=== PATIENT | female | born 1985 | race Caucasian/White ===

== ENCOUNTER 2024-01-15 18:41 | Inpatient (IN) ==
[2024-01-15] MEDS: SODIUM CHLORIDE 0.9% 1,000 ML IV SCH (19:57)
[2024-01-15] MEDS: hydrALAZINE HCL 20 MG/ML VIAL IV STA (19:57)
[2024-01-15 20:23] LABS: Basophils # (auto) 0.05 K/uL (0.00-0.20); Basophils % (auto) 0.5 %; Eosinophils # (auto) 0.18 K/uL (0.00-0.50); Eosinophils % (auto) 1.9 %; Hematocrit (blood only) 42.7 % (37.0-47.0); Hemoglobin 14.8 g/dl (12.0-16.0); Immature Granulocytes # (auto) 0.03 K/uL (0.01-0.20); Immature Granulocytes % (auto) 0.3 %; Lymphocytes # (auto) 2.25 K/uL (1.20-3.40); Lymphocytes % (auto) 24.2 %; Mean Corpuscular Hemoglobin 31.4 pg (25.0-34.0); Mean Corpuscular Hgb Conc 34.7 g/dL (32.0-36.0); Mean Corpuscular Volume 90.7 fL (80.0-100.0); Mean Platelet Volume 11.7 fL (9.4-12.4); Monocytes # (auto) 0.54 K/uL (0.11-0.59); Monocytes % (auto) 5.8 %; Neutrophils # (auto) 6.24 K/uL (1.40-6.50); Neutrophils % (auto) 67.3 %; Platelet Count 286 K/uL (130-400); RDW Coefficient of Variation 11.8 % (11.5-14.5); RDW Standard Deviation 39.1 fL (36.4-46.3); Red Blood Count 4.71 M/uL (4.20-5.40); White Blood Count 9.29 K/ul (4.8-10.8)
[2024-01-15 20:38] LABS: Albumin Globulin Ratio 1.6 (0.9-2); BUN Creatinine Ratio 16.4 (10-20); Bilirubin,Total 0.4 mg/dl (0.2-1.0); Calcium 10.4 mg/dl (8.6-10.3); Creatinine Clr Calc Pharmacy 91.7 ml/min; Globulin 3.2 gm/dl (2.5-4.0); Potassium 3.5 mmol/L (3.5-5.1); Total Protein 8.2 gm/dl (6.0-8.3)
[2024-01-15] MEDS: OPTIRAY 320 100ml IV ONE (21:26)
--- NOTE | 2024-01-15 22:33 | CT Scan Report ---
Exam(s): CT ABDOMEN + PELVIS With Contrast IV Amt: 93 ml [id number] EXAM: CT Abdomen and Pelvis With Intravenous Contrast CLINICAL HISTORY: Reason for exam: ? sigmoid volvulus on outpt CT yesterday. TECHNIQUE: Axial computed tomography images of the abdomen and pelvis with intravenous contrast. CTDI is 14.49 mGy and DLP is 736.09 mGy-cm. Automated exposure control was utilized for the study. A dose lowering technique was utilized adhering to the principles of ALARA. CONTRAST: Patient received 93 ml [id number] 320 of IV contrast COMPARISON: None. FINDINGS: Lung bases: No mass. No consolidation. No pleural effusion. An elevated right hemidiaphragm. ABDOMEN: Motion-induced image degradation. Liver: Unremarkable. No mass. Gallbladder and bile ducts: Unremarkable. No calcified stones. No ductal dilation. Pancreas: Unremarkable. No mass. No ductal dilation. Spleen: Unremarkable. No splenomegaly. Adrenals: Unremarkable. No mass. Kidneys and ureters: A 7 mm right renal cortical cyst. Smaller left renal cortical cyst. No solid mass. No hydronephrosis. Stomach and bowel: Gas filled mildly dilated gastric body and portion of the duodenum. Normal caliber small bowel. Moderately large amount of formed stool/gas mixed with luminal contrast is seen in the ascending colon and hepatic flexure. There is up to 6.7 cm gaseous distention of the transverse colon. There is in the left upper quadrant acute luminal obliteration, beaklike narrowing and some angulation of the splenic flexure/proximal descending colonic segment noted (series 300 image 51), concerning for adhesion. There is diffuse luminal narrowing of the descending colon and rectosigmoid and a 3.5 x 2.8 cm contrast/stool mixed rounded structure in the mid sigmoid (series 2 image 71, series 300 image 76). There is no twist/torsion of the sigmoid colon around its mesentery noted to suggest a sigmoid volvulus. PELVIS: Appendix: Appendix is not visualized. No acute findings in the region of the appendix. Bladder: Partially empty bladder is unremarkable. Reproductive: A mildly lobulated anteverted uterus is seen with a 2 cm heterogeneously hyperdense rounded structure, likely a fundal fibroid. ABDOMEN and PELVIS: Intraperitoneal space: No free air. No significant fluid collection. Bones/joints: No acute fracture. No dislocation. Mild/moderate degenerative L5-S1 disc/endplate spondylosis. Soft tissues: Unremarkable. Vasculature: Unremarkable. No abdominal aortic aneurysm. Lymph nodes: No enlarged lymph nodes.. IMPRESSION: No definite evidence of sigmoid volvulus noted. In the left upper abdominal quadrant there is acute luminal obliteration, beaklike narrowing and some angulation of the splenic flexure/proximal descending colon it segment is seen with up to 6.7 cm gaseous distention of the transverse colon, concerning for adhesion/large bowel obstruction. Recommend clinical correlation/follow-up. Diffuse segmental spasms/luminal narrowing of the descending colon and rectosigmoid. A 3.5 cm rounded/ball-like stool/contrast mixed structure is seen in the midst sigmoid. Probably a uterine 2 cm fundal fibroid. . Electronically signed by: Yvette Salazar MD, PRAVEENR 01/15/24 22:32 PM
[2024-01-15] MEDS: ONDANSETRON INJ 2 MG/ML 2 ML VIAL IV STA (23:22)
[2024-01-15] MEDS: MoRPHine SULFATE 4 MG/ML 1 ML CARP\\VIAL IV STA (23:23)
--- NOTE | 2024-01-15 23:28 | Emergency Department Note ---
Impression & Plan Large bowel obstruction ED Provider Note CHIEF COMPLAINT: Abdominal pain, diarrhea HISTORY OF PRESENT ILLNESS: This 38-year-old female patient with past medical history of hypertension, hypothyroid, presents to the emergency department with complaints of abdominal pain. The patient states she has been suffering with intermittent abdominal cramping and diarrhea for the last 6 months. She is followed by [facility] [address] gastroenterology, had a negative colonoscopy in July. She was on 2 rounds of antibiotics without improvement in the diarrhea and finally had a CAT scan yesterday. Patient was sent in to the emergency department emergently this evening after a phone call informing her of a sigmoid volvulus. The patient states she had significant amounts of pain yesterday but that has largely subsided. She complains of a crampy "cannot get comfortable" abdominal discomfort today. She denies any blood in the stools, She has had no vomiting. . REVIEW OF SYSTEMS: A review of systems was performed with positives and pertinent negatives listed in the history of present illness. 10 systems were reviewed and are otherwise negative. ALLERGIES: see below MEDICATIONS: see below PMH: see below SOCIAL HISTORY: see below DDx: Small bowel obstruction, volvulus, kidney stone, colitis, malignancy, among others. PHYSICAL EXAM: Vital signs reviewed. General: Well-appearing 38-year-old female, in no significant distress. HEENT: No scleral icterus, PERRLA, neck supple. Atraumatic. Cardiovascular: Regular rate and rhythm, no extra sounds. Pulmonary: Clear to auscultation bilaterally, normal work of breathing. Abdomen: Soft, mild diffuse tenderness, nondistended, minimal tympany to percussion, positive bowel sounds. Musculoskeletal: Atraumatic, no peripheral edema. Neurologic: Patient awake alert and oriented x 3, speech is clear Skin: Warm, dry, no rash EMERGENCY DEPARTMENT COURSE/MDM: this patient was evaluated And appeared to be in some discomfort, but no distress. Medical records from the outpatient setting were reviewed including CAT scan read as a sigmoid volvulus yesterday. Patient symptoms seem to have improved. KUB was performed and reveals no clear obstruction however there is dilated bowel. Laboratory work is reassuring, lactate and WBC are normal. Patient was hydrated with normal saline solution, given IV morphine and Zofran for some cramping abdominal pain. I did speak with Dr. Carballo of general surgery who agreed with repeating CT imaging given the change in clinical picture and the lack of access to yesterday's images. Repeat CT with IV contrast was performed. Images are read as an acute narrowing at the splenic flexure/descending colon with some of yesterday's oral contrast getting through. There is a concern for adhesion/large bowel obstruction. I did consult gastroenterology, Dr. Carbajal, who has recommended admission for possible endoscopy tomorrow. Dr. Carballo was informed of the findings of the CAT scan which he reviewed. He feels this is not a complete obstruction based on the CT today. He has recommended medical admission with GI and general surgery consultation. The patient was informed of the findings and plan and agrees. Dr. Hernandez of the hospitalist service was consulted for admission and further management. MONITORING: An order for cardiac monitoring was placed and the patient is noted to be in a normal sinus rhythm at 86 beats per minute. RADIOLOGY: KUB to my interpretation reveals dilated loops of bowel without clear obstructive pathology. No free air. CT imaging of the abdomen pelvis per radiology: IMPRESSION: No definite evidence of sigmoid volvulus noted. In the left upper abdominal quadrant there is acute luminal obliteration, beaklike narrowing and some angulation of the splenic flexure/proximal descending colon it segment is seen with up to 6.7 cm gaseous distention of the transverse colon, concerning for adhesion/large bowel obstruction. Recommend clinical correlation/follow-up. Diffuse segmental spasms/luminal narrowing of the descending colon and rectosigmoid. A 3.5 cm rounded/ball-like stool/contrast mixed structure is seen in the midst sigmoid. Probably a uterine 2 cm fundal fibroid. . DISPOSITION: admission Past Med/Surg History Problem List (Updated 01/15/24 @ 23:36 by Milana Marino MD) Large bowel obstruction (Acute) Medical History (Updated 01/15/24 @ 23:36 by Milana Marino MD) Heart abnormality Hypothyroid Surgical History (Updated 11/25/23 @ 08:44 by Emelia Tam RN) Status post breast reduction Social History Smoking Status: Never smoker Preferred Language: Bulgarian Feels Safe at Home: Yes Allergies Allergies Allergy/AdvReac Type Severity Reaction Status Date / Time No Known Allergies Allergy Verified 01/15/24 19:10 Home Meds Home Medications Medication Instructions Recorded Confirmed levothyroxine 50 mcg capsule 50 mcg PO DAILY 11/25/23 01/15/24 lisinopril 2.5 mg tablet 2.5 mg PO DAILY 11/25/23 01/15/24 norgestimate 0.25 mg-ethinyl 1 tab PO DAILY 11/25/23 01/15/24 estradiol 35 mcg tablet (Sprintec (28)) Results & Data (ED) Vital Signs Vital Signs - 24 hr 01/15/24 18:49 01/15/24 19:10 01/15/24 19:12 Temperature 36.8 C Temperature Source Temporal Artery Scan Pulse Rate 93 H 85 Pulse Rate [Apical] 74 Respiratory Rate 18 19 Blood Pressure 165/119 H Blood Pressure [Right Arm] 172/109 H Blood Pressure Mean 134 Blood Pressure Mean [Right Arm] 130 Pulse Oximetry 98 99 Oxygen Delivery Method Room Air Room Air Sepsis Recent Fever Within 48 Hours No Sepsis New/Unexplained Change in Mental Status No Sepsis Action Taken by Nursing No Action Required 01/15/24 22:00 01/15/24 23:28 Temperature Temperature Source Pulse Rate 98 H Pulse Rate [Apical] 86 Respiratory Rate 15 Blood Pressure Blood Pressure [Right Arm] 135/83 Blood Pressure Mean Blood Pressure Mean [Right Arm] 100 Pulse Oximetry 97 Oxygen Delivery Method Room Air Sepsis Recent Fever Within 48 Hours Sepsis New/Unexplained Change in Mental Status Sepsis Action Taken by [facility] Medications Current Medication List: was personally reviewed by me Laboratory Data Attestation: I reviewed the patient's lab results. 01/15/24 19:55 01/15/24 19:55 Lab Results 01/15/24 01/15/24 01/15/24 Range/Units 19:55 20:40 21:25 WBC 9.29 (4.8-10.8) K/ul RBC 4.71 (4.20-5.40) M/uL Hgb 14.8 (12.0-16.0) g/dl Hct 42.7 (37.0-47.0) % MCV 90.7 (80.0-100.0) fL MCH 31.4 (25.0-34.0) pg MCHC 34.7 (32.0-36.0) g/dL RDW Std Deviation 39.1 (36.4-46.3) fL RDW Coeff of Sean 11.8 (11.5-14.5) % Plt Count 286 (130-400) K/uL MPV 11.7 (9.4-12.4) fL Immature Gran % (Auto) 0.3 % Neut % (Auto) 67.3 % Lymph % (Auto) 24.2 % Fleming % (Auto) 5.8 % Eos % (Auto) 1.9 % Baso % (Auto) 0.5 % Neut # (Auto) 6.24 (1.40-6.50) K/uL Lymph # (Auto) 2.25 (1.20-3.40) K/uL Fleming # (Auto) 0.54 (0.11-0.59) K/uL Eos # (Auto) 0.18 (0.00-0.50) K/uL Baso # (Auto) 0.05 (0.00-0.20) K/uL Immature Gran # (Auto) 0.03 (0.01-0.20) K/uL Sodium 136 (136-145) mmol/L Potassium 3.5 (3.5-5.1) mmol/L Chloride 101 (98-107) mmol/L Carbon Dioxide 27 (21-32) mmol/L Anion Gap 8 (3-11) BUN 12 (6-23) mg/dl Creatinine 0.73 (0.6-1.2) mg/dl Est Cr Clr Drug Dosing 91.7 ml/min eGFR 107.89 BUN/Creatinine Ratio 16.4 (10-20) Glucose 82 (70-99(Fasting)) mg/dl Lactate 0.8 (0.4-2.0) mmol/L Calcium 10.4 H (8.6-10.3) mg/dl Total Bilirubin 0.4 (0.2-1.0) mg/dl AST 14 (13-39) U/L ALT 9 (7-52) U/L Alkaline Phosphatase 63 (34-104) U/L Total Protein 8.2 (6.0-8.3) gm/dl Albumin 5.0 (3.4-5.0) gm/dl Globulin 3.2 (2.5-4.0) gm/dl Albumin/Globulin Ratio 1.6 (0.9-2) POC Ur Test NEG (NEG) Administered Medications Sodium Chloride (Nss) 1,000 mls @ 125 mls/hr IV .Q8H ZACH Stop: 02/14/24 19:44 Last Admin: 01/15/24 19:57 Dose: 125 mls/hr Documented By: AVI Discontinued Medications Hydralazine HCl (Hydralazine Hcl 20 Mg/Ml Vial) 10 mg IV NOW STA Stop: 01/15/24 19:27 Last Admin: 01/15/24 19:57 Dose: 10 mg Documented By: AVI Ioversol (Optiray 320 100ml) 93 ml IV ONCE ONE Stop: 01/15/24 21:27 Last Admin: 01/15/24 21:26 Dose: 93 ml Documented By: ANDRÉS Morphine Sulfate (Morphine Sulfate 4 Mg/Ml 1 Ml Carp\\Vial) 4 mg IV NOW STA Stop: 01/15/24 23:11 Last Admin: 01/15/24 23:23 Dose: 4 mg Documented By: YESSY Ondansetron HCl (Ondansetron Inj 2 Mg/Ml 2 Ml Vial) 4 mg IV NOW STA Stop: 01/15/24 23:11 Last Admin: 01/15/24 23:22 Dose: 4 mg Documented By: YESSY Imaging Data Radiologist's Impression: Abdomen/Pelvis CT 01/15/24 20:43 Exam(s): CT ABDOMEN + PELVIS With Contrast IV Amt: 93 ml [id number] EXAM: CT Abdomen and Pelvis With Intravenous Contrast CLINICAL HISTORY: Reason for exam: ? sigmoid volvulus on outpt CT yesterday. TECHNIQUE: Axial computed tomography images of the abdomen and pelvis with intravenous contrast. CTDI is 14.49 mGy and DLP is 736.09 mGy-cm. Automated exposure control was utilized for the study. A dose lowering technique was utilized adhering to the principles of ALARA. CONTRAST: Patient received 93 ml [id number] 320 of IV contrast COMPARISON: None. FINDINGS: Lung bases: No mass. No consolidation. No pleural effusion. An elevated right hemidiaphragm. ABDOMEN: Motion-induced image degradation. Liver: Unremarkable. No mass. Gallbladder and bile ducts: Unremarkable. No calcified stones. No ductal dilation. Pancreas: Unremarkable. No mass. No ductal dilation. Spleen: Unremarkable. No splenomegaly. Adrenals: Unremarkable. No mass. Kidneys and ureters: A 7 mm right renal cortical cyst. Smaller left renal cortical cyst. No solid mass. No hydronephrosis. Stomach and bowel: Gas filled mildly dilated gastric body and portion of the duodenum. Normal caliber small bowel. Moderately large amount of formed stool/gas mixed with luminal contrast is seen in the ascending colon and hepatic flexure. There is up to 6.7 cm gaseous distention of the transverse colon. There is in the left upper quadrant acute luminal obliteration, beaklike narrowing and some angulation of the splenic flexure/proximal descending colonic segment noted (series 300 image 51), concerning for adhesion. There is diffuse luminal narrowing of the descending colon and rectosigmoid and a 3.5 x 2.8 cm contrast/stool mixed rounded structure in the mid sigmoid (series 2 image 71, series 300 image 76). There is no twist/torsion of the sigmoid colon around its mesentery noted to suggest a sigmoid volvulus. PELVIS: Appendix: Appendix is not visualized. No acute findings in the region of the appendix. Bladder: Partially empty bladder is unremarkable. Reproductive: A mildly lobulated anteverted uterus is seen with a 2 cm heterogeneously hyperdense rounded structure, likely a fundal fibroid. ABDOMEN and PELVIS: Intraperitoneal space: No free air. No significant fluid collection. Bones/joints: No acute fracture. No dislocation. Mild/moderate degenerative L5-S1 disc/endplate spondylosis. Soft tissues: Unremarkable. Vasculature: Unremarkable. No abdominal aortic aneurysm. Lymph nodes: No enlarged lymph nodes.. IMPRESSION: No definite evidence of sigmoid volvulus noted. In the left upper abdominal quadrant there is acute luminal obliteration, beaklike narrowing and some angulation of the splenic flexure/proximal descending colon it segment is seen with up to 6.7 cm gaseous distention of the transverse colon, concerning for adhesion/large bowel obstruction. Recommend clinical correlation/follow-up. Diffuse segmental spasms/luminal narrowing of the descending colon and rectosigmoid. A 3.5 cm rounded/ball-like stool/contrast mixed structure is seen in the midst sigmoid. Probably a uterine 2 cm fundal fibroid. . Electronically signed by: Yvette Salazar MD, PRAVEENR 01/15/24 22:32 PM Discharge Plan Visit Data Chief Complaint: Referred by Doctor Stated Complaint: TWISTED COLON ED Provider: Milana Marino Discharge Problem: Large bowel obstruction Patient Disposition: Admitted As Inpatient Condition: Good Forms Stand Alone Forms: [facility], Important Visit Information Prescriptions Prescriptions: No Action norgestimate-ethinyl estradiol [Sprintec (28)] 0.25-35 mg-mcg Tablet 1 tab PO DAILY lisinopril 2.5 mg Tablet 2.5 mg PO DAILY levothyroxine 50 mcg Capsule 50 mcg PO DAILY Referrals Referrals: Davidson Weinstein MD [Primary Care Provider] -
--- NOTE | 2024-01-15 23:46 | History & Physical Report ---
Date of Service January 15, 2024 Assessment & Plan (1) Large bowel obstruction: Plan: hypertension, slightly elevated hypothyroidism, euthyroid as of TSH last year GMF Bowel rest, IVF GI consult re: large bowel obstruction (ED provider already in touch with Dr. Carbajal.) N.p.o. in anticipation of procedure. DVT prophylaxis. SCDs Full code Text document was generated using Front Row voice recognition software. It may contain grammatical or spelling errors. Kindly contact undersigned for clarification of any documentation item in question. History of Present Illness Chief Complaint: Abnormal CAT scan Primary Care Provider: Davidson Weinstein MD History obtained from patient and records. Medical history significant for hypertension, hypothyroidism, gestational DM. Patient has been dealing with constant abdominal pain with diarrhea symptoms since May 2023. Hemorrhoids on outpatient colonoscopy. Outpatient stool workup negative. No improvement with presumptive treatment for bacterial overgrowth as per patient. Out[place] CT [place] [facility] Patient noted worsening achy abdominal discomfort without vomiting symptoms yesterday. CT abdomen pelvis showed sigmoid volvulus. Patient directed to ER for evaluation. 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 Allergies Allergy/AdvReac Type Severity Reaction Status Date / Time No Known Allergies Allergy Verified 01/15/24 19:10 Home Medications Medication Instructions Recorded Confirmed Type levothyroxine 50 mcg capsule 50 mcg PO DAILY 11/25/23 01/15/24 History lisinopril 2.5 mg tablet 2.5 mg PO DAILY 11/25/23 01/15/24 History norgestimate 0.25 mg-ethinyl 1 tab PO DAILY 11/25/23 01/15/24 History estradiol 35 mcg tablet (Sprintec (28)) Past Med/Surg History Problem List (Updated 01/15/24 @ 23:36 by Milana Marino MD) Large bowel obstruction (Acute) Medical History (Updated 01/15/24 @ 23:36 by Milana Marino MD) Heart abnormality Hypothyroid Surgical History (Updated 11/25/23 @ 08:44 by Emelia Tam RN) Status post breast reduction Social History Smoking Status: Never smoker Second Hand Exposure: No; Do You Dip or Chew Tobacco: No; Tobacco Cessation Education Requested by Patient: No Hx Alcohol Use: Yes Hx Substance Use: Yes Last Used Substance: Just Prior to Arrival Last Used Substance Other:: Medical marijuana gummy used before admission Preferred Language: Faroese Communication Ability: Effective Antisubmarine Weapons Officer Required: No Current Living Situation: Parent and Family Current Living Situation Comment: Lives with parents Other Information That Helps Us Care for You: No Feels Safe at Home: Yes Safety Concerns: Feels Safe At This Time Review of Systems Review of Systems: As per HPI, all other systems reviewed and negative Physical Exam Physical Exam: GENERAL: Comfortable, pleasant, no respiratory distress SKIN: Normal color, warm HEENT: [facility] palpebral conjunctivae, no ptosis, dry buccal mucosa NECK : Supple, no tenderness CHEST : CTA, no tenderness HEART : RRR, no obvious murmurs ABDOMEN: distention, left-sided abdominal tenderness EXTREMITIES : No LE swelling/tenderness, no other conspicuous deformities noted NEUROLOGIC : Coherent, no facial asymmetry, no other gross focality Results & Data Results & Data Vital Signs (Past 12 Hours) Vital Signs Temp Pulse Pulse Resp BP BP Pulse Ox 01/15/24 23:28 98 H 01/15/24 22:00 86 15 135/83 97 01/15/24 19:12 74 19 172/109 H 99 01/15/24 19:10 85 01/15/24 18:49 36.8 C 93 H 18 165/119 H 98 O2 Del Method 01/15/24 23:28 01/15/24 22:00 Room Air 01/15/24 19:12 Room Air 01/15/24 19:10 01/15/24 18:49 Room Air Laboratory Results Laboratory Results WBC 9.29 K/ul (4.8-10.8) 01/15/24 19:55 RBC 4.71 M/uL (4.20-5.40) 01/15/24 19:55 Hgb 14.8 g/dl (12.0-16.0) 01/15/24 19:55 Hct 42.7 % (37.0-47.0) 01/15/24 19:55 MCV 90.7 fL (80.0-100.0) 01/15/24 19:55 MCH 31.4 pg (25.0-34.0) 01/15/24 19:55 MCHC 34.7 g/dL (32.0-36.0) 01/15/24 19:55 RDW Std Deviation 39.1 fL (36.4-46.3) 01/15/24 19:55 RDW Coeff of Sean 11.8 % (11.5-14.5) 01/15/24 19:55 Plt Count 286 K/uL (130-400) 01/15/24 19:55 MPV 11.7 fL (9.4-12.4) 01/15/24 19:55 Immature Gran % (Auto) 0.3 % 01/15/24 19:55 Neut % (Auto) 67.3 % 01/15/24 19:55 Lymph % (Auto) 24.2 % 01/15/24 19:55 Mills % (Auto) 5.8 % 01/15/24 19:55 Eos % (Auto) 1.9 % 01/15/24 19:55 Baso % (Auto) 0.5 % 01/15/24 19:55 Neut # (Auto) 6.24 K/uL (1.40-6.50) 01/15/24 19:55 Lymph # (Auto) 2.25 K/uL (1.20-3.40) 01/15/24 19:55 Mills # (Auto) 0.54 K/uL (0.11-0.59) 01/15/24 19:55 Eos # (Auto) 0.18 K/uL (0.00-0.50) 01/15/24 19:55 Baso # (Auto) 0.05 K/uL (0.00-0.20) 01/15/24 19:55 Immature Gran # (Auto) 0.03 K/uL (0.01-0.20) 01/15/24 19:55 Sodium 136 mmol/L (136-145) 01/15/24 19:55 Potassium 3.5 mmol/L (3.5-5.1) 01/15/24 19:55 Chloride 101 mmol/L (98-107) 01/15/24 19:55 Carbon Dioxide 27 mmol/L (21-32) 01/15/24 19:55 Anion Gap 8 (3-11) 01/15/24 19:55 BUN 12 mg/dl (6-23) 01/15/24 19:55 Creatinine 0.73 mg/dl (0.6-1.2) 01/15/24 19:55 Est Cr Clr Drug Dosing 91.7 ml/min 01/15/24 19:55 eGFR 107.89 01/15/24 19:55 BUN/Creatinine Ratio 16.4 (10-20) 01/15/24 19:55 Glucose 82 mg/dl (70-99(Fasting)) 01/15/24 19:55 Lactate 0.8 mmol/L (0.4-2.0) 01/15/24 20:40 Calcium 10.4 mg/dl (8.6-10.3) H 01/15/24 19:55 Total Bilirubin 0.4 mg/dl (0.2-1.0) 01/15/24 19:55 AST 14 U/L (13-39) 01/15/24 19:55 ALT 9 U/L (7-52) 01/15/24 19:55 Alkaline Phosphatase 63 U/L (34-104) 01/15/24 19:55 Total Protein 8.2 gm/dl (6.0-8.3) 01/15/24 19:55 Albumin 5.0 gm/dl (3.4-5.0) 01/15/24 19:55 Globulin 3.2 gm/dl (2.5-4.0) 01/15/24 19:55 Albumin/Globulin Ratio 1.6 (0.9-2) 01/15/24 19:55 POC Ur Test NEG (NEG) 01/15/24 21:25 Impressions Abdomen/Pelvis CT 01/15/24 20:43 Exam(s): CT ABDOMEN + PELVIS With Contrast IV Amt: 93 ml [id number] 320 EXAM: CT Abdomen and Pelvis With Intravenous Contrast CLINICAL HISTORY: Reason for exam: ? sigmoid volvulus on outpt CT yesterday. TECHNIQUE: Axial computed tomography images of the abdomen and pelvis with intravenous contrast. CTDI is 14.49 mGy and DLP is 736.09 mGy-cm. Automated exposure control was utilized for the study. A dose lowering technique was utilized adhering to the principles of ALARA. CONTRAST: Patient received 93 ml [id number] 320 of IV contrast COMPARISON: None. FINDINGS: Lung bases: No mass. No consolidation. No pleural effusion. An elevated right hemidiaphragm. ABDOMEN: Motion-induced image degradation. Liver: Unremarkable. No mass. Gallbladder and bile ducts: Unremarkable. No calcified stones. No ductal dilation. Pancreas: Unremarkable. No mass. No ductal dilation. Spleen: Unremarkable. No splenomegaly. Adrenals: Unremarkable. No mass. Kidneys and ureters: A 7 mm right renal cortical cyst. Smaller left renal cortical cyst. No solid mass. No hydronephrosis. Stomach and bowel: Gas filled mildly dilated gastric body and portion of the duodenum. Normal caliber small bowel. Moderately large amount of formed stool/gas mixed with luminal contrast is seen in the ascending colon and hepatic flexure. There is up to 6.7 cm gaseous distention of the transverse colon. There is in the left upper quadrant acute luminal obliteration, beaklike narrowing and some angulation of the splenic flexure/proximal descending colonic segment noted (series 300 image 51), concerning for adhesion. There is diffuse luminal narrowing of the descending colon and rectosigmoid and a 3.5 x 2.8 cm contrast/stool mixed rounded structure in the mid sigmoid (series 2 image 71, series 300 image 76). There is no twist/torsion of the sigmoid colon around its mesentery noted to suggest a sigmoid volvulus. PELVIS: Appendix: Appendix is not visualized. No acute findings in the region of the appendix. Bladder: Partially empty bladder is unremarkable. Reproductive: A mildly lobulated anteverted uterus is seen with a 2 cm heterogeneously hyperdense rounded structure, likely a fundal fibroid. ABDOMEN and PELVIS: Intraperitoneal space: No free air. No significant fluid collection. Bones/joints: No acute fracture. No dislocation. Mild/moderate degenerative L5-S1 disc/endplate spondylosis. Soft tissues: Unremarkable. Vasculature: Unremarkable. No abdominal aortic aneurysm. Lymph nodes: No enlarged lymph nodes.. IMPRESSION: No definite evidence of sigmoid volvulus noted. In the left upper abdominal quadrant there is acute luminal obliteration, beaklike narrowing and some angulation of the splenic flexure/proximal descending colon it segment is seen with up to 6.7 cm gaseous distention of the transverse colon, concerning for adhesion/large bowel obstruction. Recommend clinical correlation/follow-up. Diffuse segmental spasms/luminal narrowing of the descending colon and rectosigmoid. A 3.5 cm rounded/ball-like stool/contrast mixed structure is seen in the midst sigmoid. Probably a uterine 2 cm fundal fibroid. . Electronically signed by: Yvette Salazar MD, DABR 01/15/24 22:32 PM
[2024-01-16 00:14] LABS: Magnesium 2.1 mg/dl (1.7-2.4)
[2024-01-16] MEDS ORDERED: ACETAMINOPHEN 325 MG TAB PO PRN (00:39)
[2024-01-16] MEDS ORDERED: LORazepam 0.5 MG TAB PO PRN (00:40)
[2024-01-16] MEDS ORDERED: PROMETHAZINE 6.25 MG/50.25 ML BAG IV PRN (00:40)
[2024-01-16] MEDS: D5W AND NSS 1,000 ML IV SCH (01:48)
[2024-01-16] MEDS: KETOROLAC TROMETHAMINE 15 MG/ML VIAL IV PRN (01:57)
[2024-01-16 02:26] LABS: Appearance Urine Clear (Clear); Bilirubin Urine Negative (Negative); Blood Urine Negative (Negative); Color Urine Yellow; Glucose Urine UA Negative (Negative); Ketones Urine Negative (Negative); Leukocyte Esterase Urine Negative (Negative); Nitrite Urine Negative (Negative); Protein Urine Negative (Negative); Specific Gravity Urine > 1.045 (1.000-1.030); Urobilinogen Urine Negative (Negative)
[2024-01-16 05:53] LABS: Basophils # (auto) 0.04 K/uL (0.00-0.20); Basophils % (auto) 0.5 %; Eosinophils # (auto) 0.24 K/uL (0.00-0.50); Eosinophils % (auto) 2.8 %; Hematocrit (blood only) 37.1 % (37.0-47.0); Hemoglobin 12.2 g/dl (12.0-16.0); Immature Granulocytes # (auto) 0.03 K/uL (0.01-0.20); Immature Granulocytes % (auto) 0.4 %; Lymphocytes # (auto) 2.14 K/uL (1.20-3.40); Lymphocytes % (auto) 25.3 %; Mean Corpuscular Hemoglobin 30.7 pg (25.0-34.0); Mean Corpuscular Hgb Conc 32.9 g/dL (32.0-36.0); Mean Corpuscular Volume 93.2 fL (80.0-100.0); Mean Platelet Volume 11.7 fL (9.4-12.4); Monocytes # (auto) 0.73 K/uL (0.11-0.59); Monocytes % (auto) 8.6 %; Neutrophils # (auto) 5.28 K/uL (1.40-6.50); Neutrophils % (auto) 62.4 %; Platelet Count 239 K/uL (130-400); RDW Coefficient of Variation 11.9 % (11.5-14.5); RDW Standard Deviation 40.5 fL (36.4-46.3); Red Blood Count 3.98 M/uL (4.20-5.40); White Blood Count 8.46 K/ul (4.8-10.8)
[2024-01-16 06:08] LABS: BUN Creatinine Ratio 14.1 (10-20); Calcium 8.7 mg/dl (8.6-10.3); Creatinine Clr Calc Pharmacy 94.4 ml/min; Potassium 3.8 mmol/L (3.5-5.1)
[2024-01-16] MEDS: LEVOTHYROXINE SODIUM 50 MCG TABLET PO SCH (06:31)
[2024-01-16] MEDS: traMADol HCL 50 MG TABLET PO PRN (06:34)
[2024-01-16] MEDS ORDERED: tiZANidine HCL 4 MG TABLET PO PRN (06:45)
[2024-01-16] MEDS ORDERED: MoRPHine SULFATE 4 MG/ML 1 ML CARP\\VIAL IV PRN (07:25)
--- NOTE | 2024-01-16 07:46 | XRay Report ---
KUB CLINICAL HISTORY: Generalized abdominal pain. FINDINGS: 2 AP, portable, supine abdominal radiographs are correlated with lumbar spine radiographs d ated 04/26/2017. There is a nonobstructed abdominal bowel gas pattern. Moderate fecal retention is see n throughout the colon. There is residual enteric contrast in the right colon. No evidence of intrape ritoneal free air is seen on these supine images. There are no abnormal abdominal calcifications. The bony structures appearance intact. IMPRESSION: Moderate constipation. Electronically signed by: Von Adair M.D. 01/16/2024 7:44 AM
--- NOTE | 2024-01-16 08:01 | XRay Report ---
KUB CLINICAL HISTORY: Generalized abdominal pain. FINDINGS: 2 AP, portable, supine abdominal radiographs are compared to abdominal radiographs and CT d ated 01/15/2024. There is a nonobstructed abdominal bowel gas pattern. Moderate fecal retention is see n throughout the colon. There is residual enteric contrast in the colon. No evidence of intraperitone al free air is seen on these supine images. Excreted IV contrast fills the bladder. There are no abno rmal abdominal calcifications. The bony structures appearance intact. IMPRESSION: Moderate constipation. Electronically signed by: Von Adair M.D. 01/16/2024 8:00 AM
--- NOTE | 2024-01-16 08:26 | Surgery Consultation ---
Date of Consultation January 16, 2024 Assessment & Plan (1) Large bowel obstruction: Patient with c/o of diarrhea since May that was instructed to present to the emergency department after getting an o/p CT scan that was concerning for large bowel obstruction/sigmoid volvulus . Patient states she has been suffering with intermittent right sided abdominal cramping and diarrhea for the last 6 months without nausea or vomiting. She follows with [facility] gastroenterology, had a negative colonoscopy in July, was on 2 rounds of antibiotics without improvement in the diarrhea. On exam pt is in NAD, VSS, no wbc elevation, abd non distended, TTP right upper quadrant . Last BM yesterday CT from ER reading no evidence of sigmoid volvulus but possible large bowel obstruction: "In the left upper abdominal quadrant there is acute luminal obliteration, beaklike narrowing and some angulation of the splenic flexure/proximal descending colon it segment is seen with up to 6.7 cm gaseous distention of the transverse colon, concerning for adhesion/large bowel obstruction. Diffuse segmental spasms/luminal narrowing of the descending colon and rectosigmoid. A 3.5 cm rounded/ball-like stool/contrast mixed structure is seen in the midst sigmoid." KUB from this AM reading moderate constipation GI consult placed, poss colonoscopy this admission? Recommend keeping NPO IV fluids for hydration PRN IV analgesics Patient discussed with on-call surgeon Dr Carballo, no acute surgical intervention. Supervising Physician Co-Signing Physician Notes Patient seen and examined, labs and imaging reviewed, agree with above. 38-year-old otherwise healthy female with several month history of abdominal discomfort and loose bowel movements. She had an unremarkable colonoscopy in July. Workup to date has been negative. She had a CT scan with oral and IV contrast as an outpatient on Saturday, and was told on Saturday that she had a sigmoid volvulus and needed to report to the emergency room emergently. We do not have access to those images at this time. Repeat CT scan yesterday showed no volvulus but did show narrowing in the transverse colon concerning for adhesion or large bowel obstruction. On my read there was contrast extending beyond this area. The read also noted several areas of the lumen narrowing or spasming in the descending and sigmoid colon. She states her last bowel was ye morning. She is passing flatus. Her abdominal pain with the oral contrast was a bit worse, but she is in no distress or significant pain at this time. Her abdomen is soft, nontender, nondistended. Imaging personally viewed and interpreted and agree with the assessment of several areas where the bowel appears collapsed along the transverse and descending/sigmoid colon. There is contrast beyond this point. Is difficult to tell whether this truly represents external compression from an adhesion or luminal narrowing of some other etiology. I feel that a large bowel obstruction or volvulus is unlikely given her age, presenting symptoms, and a normal colonoscopy in July. She is scheduled for repeat colonoscopy with GI today. Will await those results. Surgery will continue to follow. History of Present Illness Reason for Consultation: diarrhea , poss. Large bowel obstruction Requesting Physician: Dr. Alfaro Attending Physician: Lawrence Alfaro, DO History of Present Illness Patient is a pleasant 38 yo female with PMH of hypertension, hypothyroid, LVNC (Left ventricular non compaction), diarrhea since May that was instructed to present to the emergency department after getting an o/p CT scan that was concerning for large bowel obstruction/sigmoid volvulus . Patient states she has been suffering with intermittent right sided abdominal cramping and diarrhea for the last 6 months without nausea or vomiting. She follows with [facility] gastroenterology, had a negative colonoscopy in July, was on 2 rounds of antibiotics without improvement in the diarrhea. had an O/p CAT scan yesterday. She denies any blood in her stool, had worsening abd pain that started Saturday as a sharp stabbing sensation and had developed into a dull achiness Saturday. Currently she reports she has diarrhea once daily in the AM but can have it as often as a few times a day pending on the day. Does not associate diarrhea with food. Reports a negative workup from [facility] GI for Celiac, ulcerative colitis and Crohn disease, and irritable bowel syndrome. Reports + family hx of colitis. Allergies Allergy/AdvReac Type Severity Reaction Status Date / Time No Known Allergies Allergy Verified 01/15/24 19:10 Home Medications Medication Instructions Recorded Confirmed Type levothyroxine 50 mcg capsule 50 mcg PO DAILY 11/25/23 01/15/24 History lisinopril 2.5 mg tablet 2.5 mg PO DAILY 11/25/23 01/15/24 History norgestimate 0.25 mg-ethinyl 1 tab PO DAILY 11/25/23 01/15/24 History estradiol 35 mcg tablet (Sprintec (28)) Patient History Medical History Heart abnormality Hypothyroid Surgical History Status post breast reduction Social History Smoking Status: Never smoker Second Hand Exposure: No; Do You Dip or Chew Tobacco: No; Tobacco Cessation Education Requested by Patient: No Hx Alcohol Use: Yes Hx Substance Use: Yes Last Used Substance: Just Prior to Arrival Last Used Substance Other:: Medical marijuana gummy used before admission Preferred Language: Slovenian Communication Ability: Effective Line Haul Driver Required: No Current Living Situation: Parent and Family Current Living Situation Comment: Lives with parents Other Information That Helps Us Care for You: No Feels Safe at Home: Yes Safety Concerns: Feels Safe At This Time Assistive Devices: None Review of Systems Constitutional: no fever and no chills Respiratory: no dyspnea Cardiovascular: no chest pain Gastrointestinal: + abdominal pain and + diarrhea/loose st ools; no nausea and no vomiting Musculoskeletal: no muscle weakness Physical Exam Constitutional: cooperative and comfortable; no acute distress Respiratory: normal respiratory effort and able to speak in complete sentences; no respiratory distress Cardiovascular: Rate/Rhythm: regular rate Gastrointestinal (Abdomen): Inspection/Auscultation: abdomen not distended Percussion/Palpation: + abdomen tender and abdomen soft Musculoskeletal: no cyanosis or clubbing, extremities motor strength 5/5 Results & Data Vital Signs (Past 12 Hours) Vital Signs Temp Pulse Pulse Pulse Resp BP BP 01/16/24 03:18 01/16/24 03:18 98.4 F 86 16 157/95 H 01/16/24 02:28 98.4 F 86 16 157/95 H 01/16/24 01:18 98.6 F 83 20 126/82 01/16/24 00:00 98.6 F 88 20 160/80 H 01/15/24 23:28 98 H 01/15/24 22:00 86 15 135/83 Pulse Ox O2 Del Method 01/16/24 03:18 Room Air 01/16/24 03:18 99 Room Air 01/16/24 02:28 99 Room Air 01/16/24 01:18 96 Room Air 01/16/24 00:00 97 Room Air 01/15/24 23:28 01/15/24 22:00 97 Room Air Diagnostic Findings [place], [place] [phone] XRay Report Patient: MARLYN LUNA Admit Date: 01/15/24 MR#: [id number] Address1: [address] Acct ID:[id number] Address2: Date: 1985 [facility] Zip: [place] [address] Age: 38 Location: 3W Sex: F Room/Bed: [facility] Att Phy: Lawrence Alfaro DO Diagnosis: BOWEL OBS Radha Phy: Davidson Weinstein MD Service Date: 01/16/24 Fam Phy: Interpreting Phy: Von Adair MDAdmit Phy: Sohan Edwards MD Ordering Phy: Lawrence Alfaro DO cc: ~ KUB CLINICAL HISTORY: Generalized abdominal pain. FINDINGS: 2 AP, portable, supine abdominal radiographs are compared to abdominal radiographs and CT dated 01/15/2024. There is a nonobstructed abdominal bowel gas pattern. Moderate fecal retention is seen throughout the colon. There is residual enteric contrast in the colon. No evidence of intraperitoneal free air is seen on these supine images. Excreted IV contrast fills the bladder. There are no abnormal abdominal calcifications. The bony structures appearance intact. IMPRESSION: Moderate constipation. Electronically signed by: Von Adair M.D. 01/16/2024 8:00 AM Dictated: 01/16/24 0759 Transcribed: 01/16/24 0759 [facility] [place] [phone] CT Scan Report Patient: MARLYN LUNA Admit Date: 01/15/24 MR#: [id number] Address1: [facility] [place] Acct ID:[id number] Address2: Date: 1985 [facility] Zip: [place] [address] Age: 38 Location: ED Sex: F Room/Bed: Att Phy: Diagnosis: TWISTED COLON Radha Phy: Davidson Weinstein MD Service Date: 01/15/24 [facility] Phy: Interpreting Phy: Katie Yvette Salazar MDAdmit Phy: Ordering Phy: Milana Marino M.D. cc: ~ Exam(s): CT ABDOMEN + PELVIS With Contrast IV Amt: 93 ml [id number] 320 EXAM: CT Abdomen and Pelvis With Intravenous Contrast CLINICAL HISTORY: Reason for exam: ? sigmoid volvulus on outpt CT yesterday. TECHNIQUE: Axial computed tomography images of the abdomen and pelvis with intravenous contrast. CTDI is 14.49 mGy and DLP is 736.09 mGy-cm. Automated exposure control was utilized for the study. A dose lowering technique was utilized adhering to the principles of ALARA. CONTRAST: Patient received 93 ml [id number] 320 of IV contrast COMPARISON: None. FINDINGS: Lung bases: No mass. No consolidation. No pleural effusion. An elevated right hemidiaphragm. ABDOMEN: Motion-induced image degradation. Liver: Unremarkable. No mass. Gallbladder and bile ducts: Unremarkable. No calcified stones. No ductal dilation. Pancreas: Unremarkable. No mass. No ductal dilation. Spleen: Unremarkable. No splenomegaly. Adrenals: Unremarkable. No mass. Kidneys and ureters: A 7 mm right renal cortical cyst. Smaller left renal cortical cyst. No solid mass. No hydronephrosis. Stomach and bowel: Gas filled mildly dilated gastric body and portion of the duodenum. Normal caliber small bowel. Moderately large amount of formed stool/gas mixed with luminal contrast is seen in the ascending colon and hepatic flexure. There is up to 6.7 cm gaseous distention of the transverse colon. There is in the left upper quadrant acute luminal obliteration, beaklike narrowing and some angulation of the splenic flexure/proximal descending colonic segment noted (series 300 image 51), concerning for adhesion. There is diffuse luminal narrowing of the descending colon and rectosigmoid and a 3.5 x 2.8 cm contrast/stool mixed rounded structure in the mid sigmoid (series 2 image 71, series 300 image 76). There is no twist/torsion of the sigmoid colon around its mesentery noted to suggest a sigmoid volvulus. PELVIS: Appendix: Appendix is not visualized. No acute findings in the region of the appendix. Bladder: Partially empty bladder is unremarkable. Reproductive: A mildly lobulated anteverted uterus is seen with a 2 cm heterogeneously hyperdense rounded structure, likely a fundal fibroid. ABDOMEN and PELVIS: Intraperitoneal space: No free air. No significant fluid collection. Bones/joints: No acute fracture. No dislocation. Mild/moderate degenerative L5-S1 disc/endplate spondylosis. Soft tissues: Unremarkable. Vasculature: Unremarkable. No abdominal aortic aneurysm. Lymph nodes: No enlarged lymph nodes.. IMPRESSION: No definite evidence of sigmoid volvulus noted. In the left upper abdominal quadrant there is acute luminal obliteration, beaklike narrowing and some angulation of the splenic flexure/proximal descending colon it segment is seen with up to 6.7 cm gaseous distention of the transverse colon, concerning for adhesion/large bowel obstruction. Recommend clinical correlation/follow-up. Diffuse segmental spasms/luminal narrowing of the descending colon and rectosigmoid. A 3.5 cm rounded/ball-like stool/contrast mixed structure is seen in the midst sigmoid. Probably a uterine 2 cm fundal fibroid. . Electronically signed by: Yvette Salazar MD, PRAVEENR 01/15/24 22:32 PM Dictated: 01/15/242231 Transcribed: 01/15/242231 PG Care Time/CCT Total # of Minutes Spent Total Time Spent with Patient: Total time spent is greater than 50% in coordination of care (as documented) at patient's floor/unit and/or counseling patient: Coding Level of Care Code 79343 IN/OBS CONSULT LVL 3,45M Diagnoses Large bowel obstruction K56.609
[2024-01-16] MEDS: lisinopril 2.5 MG TAB PO SCH (08:28)
[2024-01-16] MEDS ORDERED: DICYCLOMINE HCL 20 MG TAB PO PRN (09:18)
--- NOTE | 2024-01-16 09:48 | Gastrointestinal Consultation ---
Date of Consultation January 16, 2024 Assessment & Plan (1) Large bowel obstruction: Suspected partial large bowel obstruction on the CAT scan. Supervising Physician Co-Signing Physician Notes I examined the patient and reviewed patient's chart , laboratory data and imaging studies. I agree with with assessment and plan of care as suggested by advanced practice provider. Chronic symptoms of minor diarrhea. Symptoms started after acute gastroenteritis in the spring 2023. 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 Few days ago experienced acute onset of abdominal pain. Prior CT scan was suggestive of sigmoid volvulus. Repeat CT scan in the emergency room yesterday was suggestive of partial large bowel obstruction at the level of sigmoid flexure. The patient's symptoms are not consistent with bowel obstruction. Abdominal pain is improving. The patient is scheduled for sigmoidoscopy with an attempt to reach the sigmoid flexure. Further recommendations after sigmoidoscopy. History of Present Illness Reason for Consultation: LBO Requesting Physician: Lawrence Alfaro DO Attending Physician: Lawrence Alfaro DO History of Present Illness 38 year old female w/ history of hypertension, hypothyroid, LVNC (Left ventricular non compaction) who is admitted through the ED with abnormal imaging. Pt was seen and evaluated, chart reviewed. Notes symptoms started in May. One day of nausea/vomiting followed by persistent loose stools. She was evaluated by her PCP who proceed with colonoscopy evaluation which was reported as negative. She had worsening loose stools and abd pain which prompted CTAP arranged by PCP which was concerning for large bowel obstruction/sigmoid volvulus. This AM she reports unchanged, chronic upper abd pain. This is sharp. No nausea/vomiting. Persistent loose, nonbloody stools daily. Was evaluated by general surgery w/o any acute surgical intervention warranted. KUB 10/3: There is a nonobstructed abdominal bowel gas pattern. Moderate fecal retention is seen throughout the colon. There is residual enteric contrast in the colon. No evidence of intraperitoneal free air is seen on these supine images. Excreted IV contrast fills the bladder. There are no abnormal abdominal calcifications. The bony structures appearance intact. CTAP 10/3: No definite evidence of sigmoid volvulus noted. In the left upper abdominal quadrant there is acute luminal obliteration, beaklike narrowing and some angulation of the splenic flexure/proximal descending colon it segment is seen with up to 6.7 cm gaseous distention of the transverse colon, concerning for adhesion/large bowel obstruction. Recommend clinical correlation/follow-up.Diffuse segmental spasms/luminal narrowing of the descending colon and rectosigmoid. A 3.5 cm rounded/ball-like stool/contrast mixed structure is seen in the midst sigmoid. Probably a uterine 2 cm fundal fibroid. Colonoscopy 2023: - The examined portion of the ileum was normal. - Normal mucosa in the entire examined colon. Biopsied. Clip (MR conditional) was placed. - Internal hemorrhoids. - The examination was otherwise normal. A: Random colon, biopsy: -Fragments of colonic mucosa with no pathologic diagnosis. Stools 2023: for GI path, C-diff were (-), fecal calprotectin normal GI labs tTG (-) 2023 Allergies Allergy/AdvReac Type Severity Reaction Status Date / Time No Known Allergies Allergy Verified 01/15/24 19:10 Home Medications Medication Instructions Recorded Confirmed Type levothyroxine 50 mcg capsule 50 mcg PO DAILY 11/25/23 01/15/24 History lisinopril 2.5 mg tablet 2.5 mg PO DAILY 11/25/23 01/15/24 History norgestimate 0.25 mg-ethinyl 1 tab PO DAILY 11/25/23 01/15/24 History estradiol 35 mcg tablet (Sprintec (28)) Patient History Medical History (Updated 01/16/24 @ 13:40 by Quinn Carbajal MD) Left ventricular non-compaction cardiomyopathy Encounter for pre-operative examination Heart abnormality Hypothyroid Surgical History Status post breast reduction Social History Smoking Status: Never smoker Second Hand Exposure: No; Do You Dip or Chew Tobacco: No; Tobacco Cessation Education Requested by Patient: No Hx Alcohol Use: Yes Hx Substance Use: Yes Last Used Substance: Just Prior to Arrival Last Used Substance Other:: Medical marijuana gummy used before admission Preferred Language: Urdu Communication Ability: Effective Senior Marketing Coordinator Required: No Current Living Situation: Parent and Family Current Living Situation Comment: Lives with parents Other Information That Helps Us Care for You: No Feels Safe at Home: Yes Safety Concerns: Feels Safe At This Time Assistive Devices: None Review of Systems Review of Systems: All other findings negative except as noted in HPI. Physical Exam Constitutional: WD/WN, vitals as above Respiratory: normal respiratory effort, lungs clear to auscultation Cardiovascular: RRR, no murmur, no edema Gastrointestinal (Abdomen): Inspection/Auscultation: normal bowel sounds Percussion/Palpation: + abdomen tender and abdomen soft; no guarding and abdomen not rigid Skin: no rashes, warm and dry Results & Data Vital Signs (Past 12 Hours) Vital Signs Temp Pulse Pulse Pulse Resp BP BP 01/16/24 08:11 36.4 C L 70 16 154/96 H 01/16/24 03:18 01/16/24 03:18 36.9 C 86 16 01/16/24 02:28 36.9 C 86 16 01/16/24 01:18 37.0 C 83 20 126/82 01/16/24 00:00 37.0 C 88 20 01/15/24 23:28 98 H 01/15/24 22:00 86 15 BP Pulse Ox O2 Del Method 01/16/24 08:11 97 Room Air 01/16/24 03:18 Room Air 01/16/24 03:18 157/95 H 99 Room Air 01/16/24 02:28 157/95 H 99 Room Air 01/16/24 01:18 96 Room Air 01/16/24 00:00 160/80 H 97 Room Air 01/15/24 23:28 01/15/24 22:00 135/83 97 Room Air Laboratory Results 01/16/24 01/16/24 01/16/24 Range/Units 07:38 05:23 02:00 WBC 8.46 (4.8-10.8) K/ul RBC 3.98 L (4.20-5.40) M/uL Hgb 12.2 (12.0-16.0) g/dl Hct 37.1 (37.0-47.0) % MCV 93.2 (80.0-100.0) fL MCH 30.7 (25.0-34.0) pg MCHC 32.9 (32.0-36.0) g/dL RDW Std Deviation 40.5 (36.4-46.3) fL RDW Coeff of Sean 11.9 (11.5-14.5) % Plt Count 239 (130-400) K/uL MPV 11.7 (9.4-12.4) fL Immature Gran % (Auto) 0.4 % Neut % (Auto) 62.4 % Lymph % (Auto) 25.3 % [place] % (Auto) 8.6 % Eos % (Auto) 2.8 % Baso % (Auto) 0.5 % Neut # (Auto) 5.28 (1.40-6.50) K/uL Lymph # (Auto) 2.14 (1.20-3.40) K/uL [place] # (Auto) 0.73 H (0.11-0.59) K/uL Eos # (Auto) 0.24 (0.00-0.50) K/uL Baso # (Auto) 0.04 (0.00-0.20) K/uL Immature Gran # (Auto) 0.03 (0.01-0.20) K/uL Sodium 138 (136-145) mmol/L Potassium 3.8 (3.5-5.1) mmol/L Chloride 107 (98-107) mmol/L Carbon Dioxide 28 (21-32) mmol/L Anion Gap 3 (3-11) BUN 10 (6-23) mg/dl Creatinine 0.71 (0.6-1.2) mg/dl Est Cr Clr Drug Dosing 94.4 ml/min eGFR 111.54 BUN/Creatinine Ratio 14.1 (10-20) Glucose 88 (70-99(Fasting)) mg/dl Lactate 0.6 (0.4-2.0) mmol/L Calcium 8.7 (8.6-10.3) mg/dl Magnesium (1.7-2.4) mg/dl Total Bilirubin (0.2-1.0) mg/dl AST (13-39) U/L ALT (7-52) U/L Alkaline Phosphatase (34-104) U/L Total Protein (6.0-8.3) gm/dl Albumin (3.4-5.0) gm/dl Globulin (2.5-4.0) gm/dl Albumin/Globulin Ratio (0.9-2) Urine Color Yellow Urine Appearance Clear (Clear) Urine pH 8.0 H (4.5-7.5) Ur Specific [place] > 1.045 H (1.000-1.030) Urine Protein Negative (Negative) Urine Glucose (UA) Negative (Negative) Urine Ketones Negative (Negative) Urine Blood Negative (Negative) Urine Nitrite Negative (Negative) Urine Bilirubin Negative (Negative) Urine Urobilinogen Negative (Negative) Ur Leukocyte Esterase Negative (Negative) POC Ur Test (NEG) 01/15/24 01/15/24 01/15/24 Range/Units 21:25 20:40 19:55 WBC 9.29 (4.8-10.8) K/ul RBC 4.71 (4.20-5.40) M/uL Hgb 14.8 (12.0-16.0) g/dl Hct 42.7 (37.0-47.0) % MCV 90.7 (80.0-100.0) fL MCH 31.4 (25.0-34.0) pg MCHC 34.7 (32.0-36.0) g/dL RDW Std Deviation 39.1 (36.4-46.3) fL RDW Coeff of Sean 11.8 (11.5-14.5) % Plt Count 286 (130-400) K/uL MPV 11.7 (9.4-12.4) fL Immature Gran % (Auto) 0.3 % Neut % (Auto) 67.3 % Lymph % (Auto) 24.2 % [place] % (Auto) 5.8 % Eos % (Auto) 1.9 % Baso % (Auto) 0.5 % Neut # (Auto) 6.24 (1.40-6.50) K/uL Lymph # (Auto) 2.25 (1.20-3.40) K/uL [place] # (Auto) 0.54 (0.11-0.59) K/uL Eos # (Auto) 0.18 (0.00-0.50) K/uL Baso # (Auto) 0.05 (0.00-0.20) K/uL Immature Gran # (Auto) 0.03 (0.01-0.20) K/uL Sodium 136 (136-145) mmol/L Potassium 3.5 (3.5-5.1) mmol/L Chloride 101 (98-107) mmol/L Carbon Dioxide 27 (21-32) mmol/L Anion Gap 8 (3-11) BUN 12 (6-23) mg/dl Creatinine 0.73 (0.6-1.2) mg/dl Est Cr Clr Drug Dosing 91.7 ml/min eGFR 107.89 BUN/Creatinine Ratio 16.4 (10-20) Glucose 82 (70-99(Fasting)) mg/dl Lactate 0.8 (0.4-2.0) mmol/L Calcium 10.4 H (8.6-10.3) mg/dl Magnesium 2.1 (1.7-2.4) mg/dl Total Bilirubin 0.4 (0.2-1.0) mg/dl AST 14 (13-39) U/L ALT 9 (7-52) U/L Alkaline Phosphatase 63 (34-104) U/L Total Protein 8.2 (6.0-8.3) gm/dl Albumin 5.0 (3.4-5.0) gm/dl Globulin 3.2 (2.5-4.0) gm/dl Albumin/Globulin Ratio 1.6 (0.9-2) Urine Color Urine Appearance (Clear) Urine pH (4.5-7.5) Ur Specific [place] (1.000-1.030) Urine Protein (Negative) Urine Glucose (UA) (Negative) Urine Ketones (Negative) Urine Blood (Negative) Urine Nitrite (Negative) Urine Bilirubin (Negative) Urine Urobilinogen (Negative) Ur Leukocyte Esterase (Negative) POC Ur Test NEG (NEG) PG Care Time/CCT Total # of Minutes Spent Total Time Spent with Patient: Total time spent is greater than 50% in coordination of care (as documented) at patient's floor/unit and/or counseling patient: Coding Level of Care Code 62413 INT INP/OBS CARE MIN Diagnoses Large bowel obstruction K56.609
--- OUTSIDE RECORDS SUMMARY | 2024-01-16 10:09 | External Medical Summary ---
Author Name Unknown Address Unknown Organization [id number] [address] [address] Laboratory Report Ordering Provider Test Date Status MARIELY SORENSON 12/26/2023 10:31:00 Final Observation Date Value Abnormality Reference (Units ) Status Human papilloma virus E6+E7 mRNA [Presence] in Cervix by JG with probe detection 12/26/2023 10:31:00 Negative Not Applicable Final No high/intermediate-risk Hu man Papillomavirus (HPV E6/E7 messenger RNA) detected by nucleic acid amplification.

This assay looks for high/intermediate risk Human Papillomavirus (HPV E6/E7 messenger RNA) by nucleic acid amplification. This assay includes the qualitative detection of HPV types 16,18,31,33,35,39,45,51,52,56,58,59,66 and 68 from cervical specimens.
This assay has been FDA cleared for Thin prep collection vials.
This assay has not been approved for use as a primary screening test for HPV and should be tested in conjunction with a PAP screen.
If collected utilizing a Sure[employer] vial, the collection and specimen preparation of this test was developed, and its performance characteristics determined by [employer]. It has not been cleared or approved by the U.S. Food and Drug Administration (FDA). The FDA has determined that such clearance or approval is not necessary.
This assay has been performed at [facility], [address] [place] [address], [place]. [address]. Performing Location [facility] [address] [facility] [address]
--- OUTSIDE RECORDS SUMMARY | 2024-01-16 10:09 | External Medical Summary | Summary of Care ---
Author Name Unknown Organization [facility] Address [address] [facility] [place] [address] Phone [phone] Care Team Providers Care Analysis Consultant Name Role Phone Priyanka Mehta Primary Care Provider [phone] Reason for Visit * Reason Comments PAP NEW PATIENT Encounter Details Date Type Department Care Team (Latest Contact Info) Description 12/26/2023 9:45 AM EDT Office Visit Gynecology/Obstetric s [facility] [address] [place] [address] Carolina Henriquez CRNP [address] [place] [address] Encounter for gynecological examination without abnormal finding*; Oral contraceptive pill surveillance; Monoallelic mutation of MYH7 gene Allergies No known active allergiesdocumented as of this encounter (statuses as of 12/26/2023) Medications Medication Sig Dispensed Refills Start Date End Date Status Lisinopril 2.5 MG Oral Tablet (Prinivil)Indicatio ns:Left ventricular noncompaction (HCC),Monoallelic mutation of MYH7 gene,Hypertension goal BP (blood pressure) < 130/80 Take 1 Tablet by mouth in the morning. 30 Tablet 11 3 Active Levothyroxine Sodium 50 MCG Oral Tablet (Levoxyl)Indication s:Acquired hypothyroidism TAKE 1 TABLET BY MOUTH ONCE DAILY 30 MINUTES BEFORE BREAKFAST OR OTHER MEDICATIONS 90 Tablet 3 4 Active valACYclovir HCl 500 MG Oral Tablet (Valtrex)Indication s:Vaginal lesion TAKE 1 TABLET BY MOUTH TWICE DAILY FOR 3 DAYS FOR OUTBREAKS 18 Tablet 3 4 Active Dicyclomine HCl 10 MG Oral Capsule (Bentyl) One tab 4x/day if needed for abdominal pain. 120 Capsule 2 4 Active Neomycin Sulfate 500 MG Oral Tablet (Neomycin Sulfate) One tablet by mouth 2x/day x 14 days 28 Tablet 4 Active rifAXIMin 550 MG Oral Tablet (Xifaxan) One tablet by mouth 3x/day x 14 days 42 Tablet 4 Active Additional Information Patient not taking.Reported on 12/26/2023 Norethindrone 0.35 MG Oral TabletIndications:O ral contraceptive pill surveillance Take 1 Tablet by mouth in the morning. 84 Tablet 3 4 Active Norgestimate-Eth Estradiol 0.25-35 MG-MCG Oral Tablet (Sprintec 28)Indications:Pain ful menstrual periods,Uses oral contraception TAKE 1 TABLET BY MOUTH ONCE DAILY IN THE MORNING SKIP PLACEBO PILLS 84 Tablet 3 4 12/26/19 24 Discontinued documented as of this encounter (statuses as of 12/26/2023) Active Problems Problem Noted Date Diagnosed Date Monoallelic mutation of MYH7 gene 08/14/2021 Overview: likely pathogenic MYH7 gene variant (c.4498 C>T, p.[id number]) detected via [employer]. Increased risk for Hereditary Cardiomyopathy. Please click the link below into your browser for a brief summary of current clinical management recommendations for Hereditary Cardiomyopathy. MYH7 Scapular dyskinesis 12/08/2020 Multiple joint pain 06/01/2020 MEDICATION USE AGREEMENT 07/24/2018 S/P bilateral breast reduction 04/01/2017 Acquired hypothyroidism 06/27/2015 Well adult exam 04/27/2015 Overview: 08/06 colon WNL biopsies WNL. Consider overflow diarrhea (hx constipation in past on CT) 11/03 TTE +trabeculae, borderline dilatetion LV/global hypokinesis, Gr I Kwon Dys. Refer cards. 2016 colonoscopy WNL (hx bleed, dx hemorrhoid) Genital herpes 12/25/2012 Overview: Begin suppressive therapy at 36wks ICD-10 update of inactive term documented as of this encounter (statuses as of 12/26/2023) Resolved Problems Problem Noted Date Diagnosed Date Resolved Date Inflammation of right sacroiliac joint 07/24/2018 02/08/2022 Pendulous breast 04/27/2015 04/01/2017 Gestational diabetes mellitus in 05/07/2013 04/01/2017 , normal first 12/25/201207/15 Overview: Pt received flu vaccine. 03/20/2013 Shana Isabel RN 05/15/2013 Tdap Vaccine administered per clinic protocol. Pt given VIS(vaccine information sheet) Amalia Ye RN documented as of this encounter (statuses as of 12/26/2023) Immunizations Name Administration Dates Next Due Seasonal Influenza, PF, 6 M & above, IM , (FluLaval or Fluzone) 02/28/2020 Seasonal Influenza, Trivalen t, (IIV3), with Preserv, (Fluzone) 02/11/2015,02/05/2014,03/20/2013 TDAP (age 10 and older)(Boostrix) 05/15/2013 documented as of this encounter Social History Tobacco Use Types Packs/Day Years Used Date Smoking Tobacco: Never Smokeless Tobacco: Never Alcohol Use Standard Drinks/Week Comments Yes 0 (1 standard drink = 0.6 oz pur e alcohol) weekly AUDIT-C Answer Date Recorded Frequency of Alcohol Consumption 2-4 times a sat04/17/2019 Average Number of Drinks 1 or 2 020 Frequency of Binge Drinking Never 06/2019 PHQ-2 Answer Date Recorded PHQ-2 Score 0 04/17/2019 Utilities Answer Date Recorded Do you have trouble paying y our heating, water, or electric bill? (Adult - for ages 18 years and over) Not on file 10/01/2023 Is your family able to pay t he heat, water, or electric bill? (Household - for ages 0-17 years) Not on file 10/01/2023 Does your family have access to good internet? (Household - for ages 0-17 years) Not on file 10/01/2023 Social Connections Answer Date Recorded How often do you feel lonely or isolated from those around you? (Adult - for ages 18 years and over) Not on file 10/01/2023 Sex and Gender Information Value Date Recorded Sex Assigned at Female 07/24/2018 9:59 AM EDT Gender Identity Female 07/24/2018 9:59 AM EDT Sexual Orientation Straight 07/24/2018 9: 59 AM EDT Job Start Date Occupation Industry Not on file Not on file Not on file documented as of this encounter Last Filed Vital Signs Vital Sign Reading Time Taken Comments Blood Pressure 120/82 12/26/2023 9:49 AM EDT Pulse - - Temperature - - Respiratory Rate - - Oxygen Saturation - - Inhaled Oxygen Concentration - - Weight 64 kg (141 lb) 12/26/2023 9:49 AM EDT Height - - Body Mass Index 25.79 07/30/2023 2:14 PM EDT documented in this encounter Progress Notes * Carolina Henriquez CRNP - 12/26/2023 10:20 AM EDT CC: Annual Exam HPI: The patient is a 38 year old female here for her annual exam. Complaints: none Taking COCPs continuously, only having 2-3 periods per year. Since her last visit to this office she has been diagnosed with a type of cardiomyopathy and HTN, is on lisinopril. Has a new sexual partner of one month, very happy with this relationship. Both pt and her new partner have HSV. She denies abnormal vaginal discharge, itching, burning, or odor. no urinary complaints. She has not been doing her BSE regularly. Had breast reduction a number of years ago. Due for pap: yes Is interested in BTL. Past Medical History: Diagnosis Date Acquired hypothyroidism 06/27/2015 Genital herpes, unspecified 12/25/2012 Begin suppressive therapy at 36wks Gestational diabetes mellitus in 05/07/2013 Inflammation of right sacroiliac joint (HCC) 07/24/2018 Multiple joint pain 06/01/2020 Pendulous breast 04/27/2015 S/P bilateral breast reduction 04/01/2017 Past Surgical History: Procedure Laterality Date COLONOSCOPY, DIAGNOSTIC (RECTUM) 03/28/2016 normal/COLONOSCOPY FLEXIBLE PROXIMAL DIAGNOSTIC performed by Karin Mckeon DO at ENDOSCOPY [facility] COLONOSCOPY, DIAGNOSTIC (RECTUM) 07/30/2023 hemorrhoids/biopsies normal/COLONOSCOPY FLEXIBLE PROXIMAL DIAGNOSTIC performed by Karin Mckeon DO at ENDOSCOPY [facility] DENTAL SURGERY PROCEDURE NEC wisdom teeth L-/S-SPINE PARAVERTEBRAL FACET INJ,1 LEVEL 12/09/2017 L-/S-SPINE PARAVERTEBRAL FACET INJ, 1 LEVEL performed by Clemente Youssef, DO at OR [facility] L-/S-SPINE PARAVERTEBRAL FACET INJ,1 LEVEL 12/26/2017 L-/S-SPINE PARAVERTEBRAL FACET INJ, 1 LEVEL performed by Clemente Youssef, DO at OR [facility] L-/S-SPINE PARAVERTEBRL FACET INJ,2 LEVELS 12/09/2017 L-/S-SPINE PARAVERTEBRAL FACET INJ, 2 LEVELS performed by [place] Youssef, DO at OR [facility] L-/S-SPINE PARAVERTEBRL FACET INJ,2 LEVELS 12/26/2017 L-/S-SPINE PARAVERTEBRAL FACET INJ, 2 LEVELS performed by [facility] Domonique, DO at OR [facility] REDUCTION OF BREAST Bilateral 09/23/2015 REDUCTION MAMMOPLASTY performed by Sohan Scruggs MD at [place] [facility] SACROILIAC JOINT INJECT W/GUIDANCE 01/16/2018 INJECTION SACROILIAC JOINT performed by [place] Kirby Youssef, DO at OR [facility] SACROILIAC JOINT INJECT W/GUIDANCE 08/18/2018 INJECTION SACROILIAC JOINT performed by Clemente Youssef, DO at OR [facility] SACROILIAC JOINT INJECT W/GUIDANCE 09/25/2018 INJECTION SACROILIAC JOINT performed by [facility] Domonique, DO at OR [facility] OB History Para Term AB Living 1 1 1 0 0 1 SAB IAB Ectopic Multiple Live Births 0 0 0 0 1 # Outcome Date GA Lbr Bill/2nd Weight Sex Type Anes PTL Lv 1 Term 07/26/13 40w1d 14:46 3.742 kg (8 lb 4 oz) M Vag-Spont EPI JOAN Comments: 2nd degree vaginal and periurethral laceration Family Hx: Family History Problem Relation Name Age of Onset Stroke Mother Heart Disorder Father 57 [place] Diabetes Father Hypertension Grandmother (Paternal) Diabetes Grandmother (Paternal) Cancer Grandfather (Paternal) Skin Ca--?melanoma suspected. Hypertension Brother Diabetes Brother No Past Hx Brother No Past Hx Son Skin cancer Grandfather (Maternal) Ulcerative colitis Grandmother (Maternal) Other (Other) Other denies family history of breast, colon, ovarian cancers Social History Tobacco Use Smoking status: Never Smokeless tobacco: Never Substance Use Topics Alcohol use: Yes Comment: weekly Vaping/E-Cigarette Use Vaping/E-Cigarette Use Never User Vaping/E-Cigarette Substances Vaping/E-Cigarette Devices Medications: Current Outpatient Medications Medication Sig Dispense Refill Lisinopril 2.5 MG Oral Tablet (Prinivil) Take 1 Tablet by mouth in the morning. 30 Tablet 11 Levothyroxine Sodium 50 MCG Oral Tablet (Levoxyl) TAKE 1 TABLET BY MOUTH ONCE DAILY 30 MINUTES BEFORE BREAKFAST OR OTHER MEDICATIONS 90 Tablet 3 valACYclovir HCl 500 MG Oral Tablet (Valtrex) TAKE 1 TABLET BY MOUTH TWICE DAILY FOR 3 DAYS FOR OUTBREAKS 18 Tablet 3 Dicyclomine HCl 10 MG Oral Capsule (Bentyl) One tab 4x/day if needed for abdominal pain. 120 Capsule 2 Neomycin Sulfate 500 MG Oral Tablet (Neomycin Sulfate) One tablet by mouth 2x/day x 14 days 28 Tablet 0 Norethindrone 0.35 MG Oral Tablet Take 1 Tablet by mouth in the morning. 84 Tablet 3 rifAXIMin 550 MG Oral Tablet (Xifaxan) One tablet by mouth 3x/day x 14 days (Patient not taking: Reported on 12/26/2023) 42 Tablet 0 No current facility-administered medications for this visit. Allergies: Review of patient's allergies indicates: No Known Allergies ROS: Negative unless otherwise mentioned in HPI Physical Exam Checkout Operator Documentation Provider requested dietitian consultant. Name of dietitian consultant: Ceci BP 120/82 | Wt 64 kg (141 lb) | BMI 25.79 kg/m | BSA 1.67 m General: awake, alert, and oriented x 3, NAD Skin: color, texture, turgor normal, no rashes or lesions Head: normocephalic, atraumatic Cardiac: regular rate and rhythm Lungs: clear to auscultation Abdomen: soft, non-tender, non-distended, no masses or organomegaly Extremities: no edema Neuro: no focal motor/sensory deficits Breasts: no nipple retraction or dimpling, no nipple discharge or bleeding, no axillary or supraclavicular lymphadenopathy, normal to palpation without dominant masses Pelvic: external genitalia and vagina anatomy within normal limits, no vulvar lesions, no significant vaginal discharge, cervix normal in appearance without lesions or purulent discharge, uterus is normal size, shape, and consistency, adnexa normal bilaterally, no abnormal pelvic masses, Pap obtained with cervical broom Assessment/Plan: Encounter for gynecological examination without abnormal finding (Primary) - TENTERER PAP SCREEN; Future; Expected date: 12/26/2023 Oral contraceptive pill surveillance-- OCP change to mini pill d/t HTN. To call with bleeding concerns. - Norethindrone 0.35 MG Oral Tablet; Take 1 Tablet by mouth in the morning. Monoallelic mutation of MYH7 gene Follow Up: Return in about 4 weeks (around 01/23/2024) for discuss tubal. | For: discuss tubal Call the office with any problems, questions, concerns. ASPEN Palmer documented in this encounter Nursing Notes * Ceci Lira CMA - 12/26/2023 9:45 AM EDT Patient identified Zoila Nicole by name and date of . Patient here for yearly exam. Complaints: discuss BTL Last pap: 04/17/2019 Last Mammogram: na Last Dexa: na Last Colonoscopy: 07/30/2023 Type of Contraception: OCP w/ PCP Pt here for chlamydia screen. no My [facility] is a way you can talk to your provider online through e-mail. May I activate it for you? ALREADY ACTIVE Do you need any refills while you are here? marianna Lira CMA 12/26/2023 9:45 AM documented in this encounter Plan of Treatment Upcoming Encounters Date Type Department Care Team (Late st Contact Info) Description 02/03/2024 2:30 PM EDT Office Visit Gynecology/Obstetrics [facility] [address] [place] [address] Devyn Lawson MD [address] [place] [address] 03/26/2024 10:00 AM EST Office Visit Gastroenterology, [facility] [address] [place] [address] Arian Shipley CRNP [address] [place] [address] Pending Results Name Type Priority Associated Diagnoses Date /Time TENTERER PAP SCREEN Pathology Routine Encounter for gynecological examination without abnormal finding 12/26/2023 10:31 AM EDT Scheduled Orders Name Type Priority Associated Diagnoses Orde r Schedule TENTERER PAP SCREEN Pathology Routine Encounter for gynecological examination without abnormal finding Expected: 12/26/2023, Expires: 01/24/2025 Health Maintenance Due Date Last Done Comments Pneumococcal Vaccine: Pediatrics (0 to 5 Years) and At-Risk Patients (6 to 64 Years) (1 of 2 - PCV) 1991 Hepatitis C Screening 2003 Hepatitis B Vaccine (1 of 3 - 19+ 3-dose series) 01/27/2004 HPV/Co-Test 2015 Depression Screening 04/17/2020 04/17/2019, 01/19/20 18 Cervical Cancer Screening 04/17/2022 Pap Smear 04/17/2022 04/17/2019, 01/15, 12/25/2012 DTap/Tdap Vaccines (2 - Td or Tdap) 05/15/2023 05/15/2013 COVID-19 Vaccine ( - season) 2023 Influenza Vaccine (FLU shot) (#1) 2023 02/28/2020, 01/18/2018 (Declined), 02/11/2015, Additional history exists TSH 04/02/2024 04/02/2023, 06/15, 03/01/2020, Additional history exists Diabetes Screening 04/25/2026 04/25/2023, 1 06/03/2022, 11/21/2021, Additional history exists HPV (Gardasil) Vaccine Aged Out No lo nger eligible based on patient's age to complete this topic MENINGOCOCCAL (MENACTRA/MENVEO) Aged Out No longer eligible based on patient's age to complete this topic documented as of this encounter Medical Devices Implanted Type Area Finished Cigar Maker Device Identifier Shelf Expiration Date Model / Serial / Lot Hemostatic Clip Res 235cm - [id number] Implanted:Qty: 1 on 07/30/2023 by Karin Mckeon DO at ENDOSCOPY [facility] Colon [facility] : ENDOSCOPY 12/10/2025 [id number] / / [id number] documented as of this encounter Visit Diagnoses Diagnosis Encounter for gynecological examination without abnormal finding- Primary Routine gynecological examination Oral contraceptive pill surveillance Surveillance of previously prescribed contraceptive pill Monoallelic mutation of MYH7 gene documented in this encounter Advance Directives * Full Code (Latest Code Status on File) Date Activated Date Inactivated Comments 09/23/2015 2:35 PM 09/24/2015 4:08 PM This order r eflects the patients wishes and were consensually agreed upon. Question Answer Comments Discussion of Advance Directives occurred with: Not Discussed Care Teams Analysis Consultant Relationship Specialty Start Date End Date Priyanka Mehta CRNP [address] [facility] [place] [address] PCP - General Nurse Practitioner 10/24/23 documented as of this encounter"
--- OUTSIDE RECORDS SUMMARY | 2024-01-16 10:09 | External Medical Summary | Summary of Care ---
Author Name Unknown Organization [facility] Address [address] [facility] [place] [address] Phone [phone] Care Team Providers Care Hazard Waste Handler Name Role Phone Priyanka Mehta Primary Care Provider [phone] Reason for Visit * Reason Comments PAP NEW PATIENT Encounter Details Date Type Department Care Team (Latest Contact Info) Description 12/26/2023 9:45 AM EDT Office Visit Gynecology/Obstetric s [facility] [address] [place] [address] Carolina Henriquez CRNP [address] [place] [address] Encounter for gynecological examination without abnormal finding*; [...] likely pathogenic MYH7 gene variant (c.4498 C>T, p.[id number]) detected via [employer]. Increased risk for Hereditary Cardiomyopathy. Please click [...] performed by Karin Mckeon DO at ENDOSCOPY [facility] COLONOSCOPY, DIAGNOSTIC (RECTUM) 07/30/2023 hemorrhoids/biopsies normal/COLONOSCOPY FLEXIBLE PROXIMAL DIAGNOSTIC performed by Karin Mckeon DO at ENDOSCOPY [facility] DENTAL SURGERY PROCEDURE NEC wisdom teeth L-/S-SPINE PARAVERTEBRAL FACET INJ,1 LEVEL 12/09/2017 L-/S-SPINE PARAVERTEBRAL FACET INJ, 1 LEVEL performed by Clemente Youssef, DO at OR [facility] L-/S-SPINE PARAVERTEBRAL FACET INJ,1 LEVEL 12/26/2017 L-/S-SPINE PARAVERTEBRAL FACET INJ, 1 LEVEL performed by Clemente Youssef, DO at OR [facility] L-/S-SPINE PARAVERTEBRL FACET INJ,2 LEVELS 12/09/2017 L-/S-SPINE PARAVERTEBRAL FACET INJ, 2 LEVELS performed by [place] Youssef, DO at OR [facility] L-/S-SPINE PARAVERTEBRL FACET INJ,2 LEVELS 12/26/2017 L-/S-SPINE PARAVERTEBRAL FACET INJ, 2 LEVELS performed by [facility] Domonique, DO at OR [facility] REDUCTION OF BREAST Bilateral 09/23/2015 REDUCTION MAMMOPLASTY performed by Sohan Scruggs MD at OR [facility] SACROILIAC JOINT INJECT W/GUIDANCE 01/16/2018 INJECTION SACROILIAC JOINT performed by [place]illi[place] Kirby Youssef, DO at OR [facility] SACROILIAC JOINT INJECT W/GUIDANCE 08/18/2018 INJECTION SACROILIAC JOINT performed by Clemente Youssef, DO at OR [facility] SACROILIAC JOINT INJECT W/GUIDANCE 09/25/2018 INJECTION SACROILIAC JOINT performed by [facility] Domonique, DO at OR [facility] OB History Para Term AB Living [...] Onset Stroke Mother Heart Disorder Father 57 [place] Diabetes Father Hypertension Grandmother (Paternal) Diabetes Grandmother [...] unless otherwise mentioned in HPI Physical Exam Endless Bed Drum Sander Documentation Provider requested pacs administrator. Name of pacs administrator: Ceci BP 120/82 | Wt 64 kg [...] gynecological examination without abnormal finding (Primary) - BURR GRINDER PAP SCREEN; Future; Expected date: 12/26/2023 Oral [...] 2:30 PM EDT Office Visit Gynecology/Obstetrics [facility] [address] [place] [address] Devyn Lawson MD [address] [place] [address] 03/26/2024 10:00 AM EST Office Visit Gastroenterology, [facility] [address] [place] [address] Arian Shipley CRNP [address] [place] [address] Pending Results Name Type Priority Associated Diagnoses Date /Time BURR GRINDER PAP SCREEN Pathology Routine Encounter for gynecological examination without abnormal finding 12/26/2023 10:31 AM EDT Scheduled Orders Name Type Priority Associated Diagnoses Orde r Schedule BURR GRINDER PAP SCREEN Pathology Routine Encounter for gynecological [...] this encounter Medical Devices Implanted Type Area Nurse Technician Device Identifier Shelf Expiration Date Model / Serial / Lot Hemostatic Clip Res 235cm - [id number] Implanted:Qty: 1 on 07/30/2023 by Karin Mckeon DO at ENDOSCOPY [facility] Colon [facility] : ENDOSCOPY 12/10/2025 [id number] / / [id number] documented as of this encounter Visit Diagnoses [...] Directives occurred with: Not Discussed Care Teams Hazard Waste Handler Relationship Specialty Start Date End Date Priyanka Mehta CRNP [address] [facility] [place] [address] PCP - General Nurse Practitioner 10/24/23 documented as of this encounter"
--- OUTSIDE RECORDS SUMMARY | 2024-01-16 10:10 | External Medical Summary | Summary of Care ---
Author Name Unknown Organization [facility] Address [address] [facility] [place] [address] Phone [phone] Care Team Providers Care Manufacturing Quality Manager Name Role Phone MehtaPriyanka ASPEN Primary Care Provider Encounter Details Date Type Department Care Team (Late st Contact Info) Description 11/26/2023 Telephone Gastroenterology, [facility] [address] [place] [address] Arian Shipley CRNP [address] [place] [address] Allergies No known active allergiesdocumented as of this encounter (statuses as of 11/26/2023) Medications Medication Sig Dispensed Refills Start Date End Date Status Lisinopril 2.5 MG Oral Tablet (Prinivil)Indication s:Left ventricular noncompaction (HCC),Monoallelic mutation of MYH7 gene,Hypertension goal BP (blood pressure) < 130/80 Take 1 Tablet by mouth in the morning. 30 Tablet 11 04/11/2023 Active Levothyroxine Sodium 50 MCG Oral Tablet (Levoxyl)Indications :Acquired hypothyroidism TAKE 1 TABLET BY MOUTH ONCE DAILY 30 MINUTES BEFORE BREAKFAST OR OTHER MEDICATIONS 90 Tablet 3 05/07/2023 Active Norgestimate-Eth Estradiol 0.25-35 MG-MCG Oral Tablet (Sprintec 28)Indications:Painf ul menstrual periods,Uses oral contraception TAKE 1 TABLET BY MOUTH ONCE DAILY IN THE MORNING SKIP PLACEBO PILLS 84 Tablet 3 05/07/2023 Active valACYclovir HCl 500 MG Oral Tablet (Valtrex)Indications :Vaginal lesion TAKE 1 TABLET BY MOUTH TWICE DAILY FOR 3 DAYS FOR OUTBREAKS 18 Tablet 3 05/21/2023 Active Dicyclomine HCl 10 MG Oral Capsule (Bentyl) One tab 4x/day if needed for abdominal pain. 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 Increased risk for Hereditary Cardiomyopathy. Please click [...] as of this encounter (statuses as of 11/26/2023) Resolved Problems Problem Noted Date Diagnosed Date Resolved Date Inflammation of right sacroiliac joint 07/24/2018 02/08/2022 Pendulous breast 04/27/2015 04/01/2017 Gestational diabetes mellitus in 05/07/2013 04/01/2017 , normal first 12/25/2012 04/2 04/2013 Overview: Pt received flu vaccine. 03/20/2013 Shana Isabel RN 05/15/2013 Tdap Vaccine administered per clinic protocol. Pt given VIS(vaccine information sheet) Amalia Ye RN documented as of this encounter (statuses as of 11/26/2023) Immunizations Name Administration Dates Next Due Seasonal Influenza, PF, 6 M & above, IM , (FluLaval or Fluzone) 02/28/2020 Seasonal Influenza, Split, I IV3, With Preserve, Inj 02/11/2015,02/05/2014,03/20/2013 TDAP (age 10 and older)(Boostrix) 05/15/2013 [...] on file documented as of this encounter Miscellaneous Notes * Telephone Encounter - Crystal Sethi OSA - 11/26/2023 2:34 PM EDT Called pt to schedule CT scan, pt said she is holding off on scheduling test for now. documented in this encounter Plan of Treatment Upcoming Encounters Date Type Department Care Team (Late st Contact Info) Description 12/26/2023 9:45 AM EDT Office Visit Gynecology/Obstetrics [facility] [address] [place] [address] Carolina Henriquez CRNP [address] [place] [address] 03/26/2024 10:00 AM EST Office Visit Gastroenterology, [facility] [address] [place] [address] Arian Shipley CRNP [address] [place] [address] Health Maintenance Due Date Last Done Comments Pneumococcal Vaccine: Pediatrics (0 to 5 Years) and At-Risk Patients (6 to 64 Years) (1 of 2 - PCV) 1991 Hepatitis C Screening 2003 Hepatitis B Vaccine (1 of 3 - 19+ 3-dose series) 01/27/2004 HPV/Co-Test 2015 Depression Screening 04/17/2020 04/17/2019, 01/19/20 18 Cervical Cancer Screening 04/17/2022 Pap Smear 04/17/2022 04/17/2019, 01/15, 12/25/2012 COVID-19 Vaccine ( - 2022- season) 2022 DTaP,Tdap,and Td Vaccines (2 - Td or Tdap) 05/15/2023 05/15/2013 Influenza Vaccine (FLU shot) (#1) 2023 02/28/2020, 01/18/2018 (Declined), 02/11/2015, Additional history exists TSH 04/02/2024 04/02/2023, 03/3 04/2021, 03/01/2020, Additional history exists Diabetes Screening 04/25/2026 04/25/2023, 1 06/03/2022, 11/21/2021, Additional history exists HPV (Gardasil) Vaccine Aged Out No lo nger eligible based on patient's age to complete this topic MENINGOCOCCAL (MENACTRA/MENVEO) Aged Out No longer eligible based on patient's age to complete this topic documented as of this encounter Medical Devices Implanted Type Area Sole Rougher Device Identifier Shelf Expiration Date Model / Serial / Lot Hemostatic Clip Res 235cm - [id number] Implanted:Qty: 1 on 07/30/2023 by Karin Mckeon DO at ENDOSCOPY [facility] [employer] : ENDOSCOPY 12/10/2025 [id number] / / [id number] documented as of this encounter Advance Directives * Full Code (Latest Code Status on File) Date Activated Date Inactivated Comments 09/23/2015 2:35 PM 09/24/2015 4:08 PM This order r eflects the patients wishes and were consensually agreed upon. Question Answer Comments Discussion of Advance Directives occurred with: Not Discussed Care Teams Manufacturing Quality Manager Relationship Specialty Start Date End Date Priyanka Mehta CRNP [address] [facility] [place] [address] PCP - General Nurse Practitioner 10/24/23 documented as of this encounter
--- OUTSIDE RECORDS SUMMARY | 2024-01-16 10:10 | External Medical Summary | Summary of Care ---
Author Name Unknown Organization [facility] Address [address] [place] [address] Phone [phone] Care Team Providers Care Gambling Floor Supervisor Name Role Phone Priyanka Mehta Primary Care Provider [phone] Reason for Visit * Reason Onset Date Comments Test Results 11/26/2023 Encounter Details Date Type Department Care Team (Late st Contact Info) Description 11/26/2023 Telephone Gastroenterology, [facility] [address] [place] [address] Arian Shipley CRNP [address] [place] [address] Test Results Allergies No known active allergiesdocumented as of [...] likely pathogenic MYH7 gene variant (c.4498 C>T, p.G2135Z) detected via [employer]. Increased risk for Hereditary Cardiomyopathy. Please click [...] mellitus in 05/07/2013 04/01/2017 , normal first 12/25/2012/2 04/2013 Overview: Pt received flu vaccine. 03/20/2013 [...] encounter Miscellaneous Notes * Telephone Encounter - Arian Shipley CRNP - 11/26/2023 7:41 AM EDT Breath test + for SIBO: Hydrogen Methane Baseline: 0 17 20 min 38 120 min 132 Plan: Rifaximin 550mg TID x 14 days Neomycin 500mg BID x 14 days Message to pt. Nurses, please send rifaximin for prior auth and call the pt to verify that she is aware and ask ifany questions. Very important not to take neomycin while . Verify that she is not and that she is on reliable control. documented in this encounter Plan of Treatment Upcoming Encounters Date Type Department Care Team (Late st Contact Info) Description 12/26/2023 9:45 AM EDT Office Visit Gynecology/Obstetrics [facility] [address] [place] [address] Carolina Henriquez CRNP [address] [place] [address] 03/26/2024 10:00 AM EST Office Visit Gastroenterology, [facility] [address] [place] [address] Arian Shipley CRNP [address] [place] [address] Health Maintenance Due Date Last Done Comments [...] 04/17/2019, 01/15, 12/25/2012 COVID-19 Vaccine ( - season) 2022 DTaP,Tdap,and Td Vaccines (2 - [...] this encounter Medical Devices Implanted Type Area Data Migration Lead Device Identifier Shelf Expiration Date Model / Serial / Lot Hemostatic Clip Res 235cm - [id number] Implanted:Qty: 1 on 07/30/2023 by Karin Mckeon DO at ENDOSCOPY [facility] Colon [employer] : ENDOSCOPY 12/10/2025 [id number] / / [id number] documented as of this encounter Advance Directives * Full Code (Latest Code Status on File) Date Activated Date Inactivated Comments 09/23/2015 2:35 PM 09/24/2015 4:08 PM This order r eflects the patients wishes and were consensually agreed upon. Question Answer Comments Discussion of Advance Directives occurred with: Not Discussed Care Teams Gambling Floor Supervisor Relationship Specialty Start Date End Date Priyanka Mehta CRNP [address] [place] [address] PCP - General Nurse Practitioner 10/24/23 documented as of this encounter
--- OUTSIDE RECORDS SUMMARY | 2024-01-16 10:10 | External Medical Summary | Summary of Care ---
Author Name Unknown Organization [facility] Address [address] [facility] [place] [address] Phone [phone] Care Team Providers Care Button Grader Name Role Phone Inder Mehtajanell ASPEN Primary Care Provider [phone] Reason for Visit * Reason Onset Date Comments Test Results 11/26/2023 Encounter Details Date Type Department Care Team (Late st Contact Info) Description 11/26/2023 Telephone Gastroenterology, [facility] [address] [place] [address] Lesly Shipley CRNP [address] [place] [address] Test Results Allergies No known active allergiesdocumented as of this encounter (statuses as of 12/09/2023) Medications Medication Sig Dispensed Refills Start Date [...] abdominal pain. 120 Capsule 2 07/26/2023 Active Neomycin Sulfate 500 MG Oral Tablet (Neomycin Sulfate) One tablet by mouth 2x/day x 14 days 28 Tablet 12/09/2023 Active rifAXIMin 550 MG Oral Tablet (Xifaxan) One tablet by mouth 3x/day x 14 days 42 Tablet 12/09/2023 Active rifAXIMin 550 MG Oral Tablet (Xifaxan) One tablet by mouth 3x/day x 14 days 42 Tablet 11/26/2023 12/09/19 24 Discontinu ed(Refill) Neomycin Sulfate 500 MG Oral Tablet (Neomycin Sulfate) One tablet by mouth 2x/day x 14 days 28 Tablet 11/26/2023 12/09/19 24 Discontinu ed(Refill) documented as of this encounter (statuses as of 12/09/2023) Active Problems Problem Noted Date Diagnosed Date 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 Increased risk for Hereditary Cardiomyopathy. Please click [...] as of this encounter (statuses as of 12/09/2023) Resolved Problems Problem Noted Date Diagnosed Date Resolved Date Inflammation of right sacroiliac joint 07/24/2018 02/08/2022 Pendulous breast 04/27/2015 04/01/2017 Gestational diabetes mellitus in 05/07/2013 04/01/2017 , normal first 12/25/201207/15 Overview: Pt received flu vaccine. 03/20/2013 Shana Isabel RN 05/15/2013 Tdap Vaccine administered per clinic protocol. Pt given VIS(vaccine information sheet) Amalia Ye RN documented as of this encounter (statuses as of 12/09/2023) Immunizations Name Administration Dates Next Due Seasonal [...] as of this encounter Miscellaneous Notes * Addendum Note - Lesly Shipley CRNP - 12/09/2023 4:41 PM EDTAddended by: LESLY SHIPLEY on: 12/09/2023 04:41 PM Modules accepted: Orders * Telephone Encounter - Lesly Shipley CRNP - 11/26/2023 7:41 AM EDT [...] 12/26/2023 9:45 AM EDT Office Visit Gynecology/Obstetrics [facility] [address] [place] [address] Carolina Henriquez CRNP [address] [place] [address] 03/26/2024 10:00 AM EST [facility] [address] [place] [address] Lesly Shipley CRNP [address] [place] [address] Health Maintenance Due Date Last Done Comments Pneumococcal Vaccine: Pediatrics (0 to 5 Years) and At-Risk Patients (6 to 64 Years) (1 of 2 - PCV) 1991 Hepatitis C Screening 2003 Hepatitis B Vaccine (1 of 3 - 19+ 3-dose series) 01/27/2004 HPV/Co-Test 2015 Depression Screening 04/17/2020 04/17/2019, 01/19/20 18 Cervical Cancer Screening 04/17/2022 Pap Smear 04/17/2022 04/17/2019, 01/15, 12/25/2012 COVID-19 Vaccine ( season) 2022 DTaP,Tdap,and Td Vaccines (2 - [...] this encounter Medical Devices Implanted Type Area Obstetric Anaesthetist Device Identifier Shelf Expiration Date Model / Serial / Lot Hemostatic Clip Res 235cm - [id number] Implanted:Qty: 1 on 07/30/2023 by Karin Mckeon DO at ENDOSCOPY [facility] Colon [employer] : ENDOSCOPY 12/10/2025 [id number] / / [id number] documented as of this encounter Advance Directives * Full Code (Latest Code Status on File) Date Activated Date Inactivated Comments 09/23/2015 2:35 PM 09/24/2015 4:08 PM This order r eflects the patients wishes and were consensually agreed upon. Question Answer Comments Discussion of Advance Directives occurred with: Not Discussed Care Teams Button Grader Relationship Specialty Start Date End Date Priyanka Mehta CRNP [address] [place] [address] PCP - General Nurse Practitioner 10/24/23 documented as of this encounter
--- OUTSIDE RECORDS SUMMARY | 2024-01-16 10:10 | External Medical Summary | Summary of Care ---
Author Name Unknown Organization [facility] Address [address] [place] [address] Phone [phone] Care Team Providers Care Automation Controls Engineer Name Role Phone Priyanka Mehta Primary Care Provider [phone] Reason for Visit * Reason Onset Date Comments Test Results 11/26/2023 Encounter Details Date Type Department Care Team (Late st Contact Info) Description 11/26/2023 Telephone Gastroenterology, [facility] [address] [place] [address] Arian Shipley CRNP [address] [place] [address] Test Results Allergies No known active allergiesdocumented [...] likely pathogenic MYH7 gene variant (c.4498 C>T, p.Y9189V) detected via [employer]. Increased risk for Hereditary Cardiomyopathy. Please click [...] mellitus in 05/07/2013 04/01/2017 , normal first 12/25/2012/04/2013 Overview: Pt received flu vaccine. 03/20/2013 Shana [...] 12/26/2023 9:45 AM EDT Office Visit Gynecology/Obstetrics [facility] [address] [place] [address] Carolina Henriquez CRNP [address] [place] [address] 03/26/2024 10:00 AM EST Office Visit Gastroenterology, [facility] [address] [place] [address] [address] Arian Shipley CRNP [address] [place] [address] Health Maintenance Due Date Last Done Comments [...] this encounter Medical Devices Implanted Type Area Mems Device Scientist Device Identifier Shelf Expiration Date Model / Serial / Lot Hemostatic Clip Res 235cm - [id number] Implanted:Qty: 1 on 07/30/2023 by Karin Mckeon DO at ENDOSCOPY [facility] Colon [employer] : ENDOSCOPY 12/10/2025 [id number] / / [id number] documented as of this encounter Advance Directives * Full Code (Latest Code Status on File) Date Activated Date Inactivated Comments 09/23/2015 2:35 PM 09/24/2015 4:08 PM This order r eflects the patients wishes and were consensually agreed upon. Question Answer Comments Discussion of Advance Directives occurred with: Not Discussed Care Teams Automation Controls Engineer Relationship Specialty Start Date End Date Priyanka Mehta CRNP [address] [place] [address] PCP - General Nurse Practitioner 10/24/23 documented as of this encounter
--- OUTSIDE RECORDS SUMMARY | 2024-01-16 10:10 | External Medical Summary | Summary of Care ---
Author Name Unknown Organization [facility] Address [address] [facility] [place] [address] Phone [phone] Care Team Providers Care Engineer Second Assistant Name Role Phone Tyson Inderjanell ASPEN Primary Care Provider [phone] Reason for Visit * Reason Onset Date Comments Precert Approved 11/26/2023 Xifaxan Encounter Details Date Type Department Care Team (Late st Contact Info) Description 11/26/2023 Telephone Gastroenterology, [facility] [address] [place] [address] Arian Shipley CRNP [address] [place] [address] Precert Approved (Xifaxan) Allergies No known active allergiesdocumented as of [...] likely pathogenic MYH7 gene variant (c.4498 C>T, p.Z6661R) detected via [email or web address]. Increased risk for Hereditary Cardiomyopathy. Please click [...] encounter Miscellaneous Notes * Telephone Encounter - Daisy Savage CMA - 11/26/2023 3:53 PM EDT Left a detailed message for pt that Xifaxan has been approved and to check with Severiano Frankel.Also to call the office with any questions/concerns. Type Date User Summary Attachment Precert 11/26/2023 3:47 PM Melissa Crespo OSA Please see scanned fax from insurance under theMedia Tab. - Note: Please see scanned fax from insurance under the Media Tab. Approved/Denied: approved Drug Name and Formulation: Xifaxan 550mg tab 3 times daily How Prescribed(directions/sig): Xifaxan 550mg tab 3 times daily Day Supply: 14 Did you receive insurance information from outside the chart? No, received insurance information within the chart Valid auth start date: 11/26/2023 Valid auth end date: 12/10/2023 Rx Insurance Info: [facility] [place] Reference #: Melissa Crespo Medication Vp Transportation III [facility] ([facility]) P: [phone] F: [phone] 11/26/23,3:47 PM . Type Date User Summary Attachment Precert 11/26/2023 11:12 AM Melissa Crespo OSA [facility] Authorization Submission - Note: [facility] Authorization Submission Submission Information: Medication: Xifaxan 550mg tab 3 times daily Portal used: [facility] Insurance: [facility] Authorization #/Newman: [id number] * Telephone Encounter - Daisy Savage CMA - 11/26/2023 10:42 AM EDT Gastro Pre-Cert Request Specialty Medication: No. Medication/Disease State Information: Medication: Xifaxan 550mg tab 3 times daily Diagnosis (including ICD-10): SIBO K63.8219 Site of care: Self-administered - route pre-cert request to [id number] Positive test for SIBO Breath test + for SIBO: Hydrogen Methane Baseline: 0 17 20 min 38 120 min 132 Office Information: Prescriber: ASPEN Alvarado documented in this encounter Plan of Treatment Upcoming Encounters Date Type Department Care Team (Late st Contact Info) Description 12/26/2023 9:45 AM EDT Office Visit Gynecology/Obstetrics [facility] [address] [place] [address] Carolina Henriquez CRNP [address] [place] [address] 03/26/2024 10:00 AM EST Office Visit Gastroenterology, [facility] [address] [place] [address] Arian Shipley CRNP [address] [place] [address] Health Maintenance Due Date Last Done Comments [...] this encounter Medical Devices Implanted Type Area Customer Service Operator Device Identifier Shelf Expiration Date Model / Serial / Lot Hemostatic Clip Res 235cm - [id number] Implanted:Qty: 1 on 07/30/2023 by Karin Mckeon DO at ENDOSCOPY [facility] [employer] : ENDOSCOPY 12/10/2025 [id number] / / [id number] documented as of this encounter Advance Directives * Full Code (Latest Code Status on File) Date Activated Date Inactivated Comments 09/23/2015 2:35 PM 09/24/2015 4:08 PM This order r eflects the patients wishes and were consensually agreed upon. Question Answer Comments Discussion of Advance Directives occurred with: Not Discussed Care Teams Engineer Second Assistant Relationship Specialty Start Date End Date Priyanka Mehta CRNP [address] [facility] [place] [address] PCP - General Nurse Practitioner 10/24/23 documented as of this encounter
--- OUTSIDE RECORDS SUMMARY | 2024-01-16 10:10 | External Medical Summary | Summary of Care ---
Author Name Unknown Organization [facility] Address [address] [facility] [place] [address] Phone [phone] Care Team Providers Care Field Supervisor Seed Production Name Role Phone Inder Mehtajanell ASPEN Primary Care Provider [phone] Reason for Visit * Reason Onset Date Comments Test Results 11/26/2023 Encounter Details Date Type Department Care Team (Late st Contact Info) Description 11/26/2023 Telephone Gastroenterology, [facility] [address] [place] [address] Lesly Shipley CRNP [address] [place] [address] Test Results Allergies No known active allergiesdocumented as of this encounter (statuses as of 12/10/2023) Medications Medication Sig Dispensed Refills Start Date [...] as of this encounter (statuses as of 12/10/2023) Active Problems Problem Noted Date Diagnosed Date 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 Increased risk for Hereditary Cardiomyopathy. Please click [...] as of this encounter (statuses as of 12/10/2023) Resolved Problems Problem Noted Date Diagnosed Date Resolved Date Inflammation of right sacroiliac joint 07/24/2018 02/08/2022 Pendulous breast 04/27/2015 04/01/2017 Gestational diabetes mellitus in 05/07/2013 04/01/2017 , normal first 12/25/201207/15 Overview: Pt received flu vaccine. 03/20/2013 Shana Isabel RN 05/15/2013 Tdap Vaccine administered per clinic protocol. Pt given VIS(vaccine information sheet) Amalia Ye RN documented as of this encounter (statuses as of 12/10/2023) Immunizations Name Administration Dates Next Due Seasonal [...] 12/26/2023 9:45 AM EDT Office Visit Gynecology/Obstetrics [facility] [address] [place] [address] [address] Carolina Henriquez CRNP [address] [place] [address] 03/26/2024 10:00 AM EST [facility] [address] [place] [address] Lesly Shipley CRNP [address] [place] [address] Health Maintenance Due Date Last Done Comments [...] 01/15, 12/25/2012 COVID-19 Vaccine ( season) 2022 DTap/Tdap Vaccines (2 - Td or Tdap) [...] this encounter Medical Devices Implanted Type Area Associate Professor Of Sociology Device Identifier Shelf Expiration Date Model / Serial / Lot Hemostatic Clip Res 235cm - [id number] Implanted:Qty: 1 on 07/30/2023 by Karin Mckeon DO at ENDOSCOPY [facility] Colon [facility] : ENDOSCOPY 12/10/2025 [id number] / / [id number] documented as of this encounter Advance Directives * Full Code (Latest Code Status on File) Date Activated Date Inactivated Comments 09/23/2015 2:35 PM 09/24/2015 4:08 PM This order r eflects the patients wishes and were consensually agreed upon. Question Answer Comments Discussion of Advance Directives occurred with: Not Discussed Care Teams Field Supervisor Seed Production Relationship Specialty Start Date End Date Priyanka Mehta CRNP [address] [place] [address] PCP - General Nurse Practitioner 10/24/23 documented as of this encounter
--- NOTE | 2024-01-16 12:19 | Hospitalist Progress Note ---
Date of Service January 16, 2024 Assessment & Plan (1) Obstipation: (2) Hypothyroid: (3) Hypertension: Plan Patient with abdominal pain and spasms due to obstipation and partial large bowel obstruction. Communication with GI team, planning enemas and flexible sigmoidoscopy. Anticipate patient will also need bowel regimen from above in addition to enemas from below. Continue current blood pressure medication, blood pressure increased currently due to pain Pain management Encourage activity as tolerated Continue thyroid medication Monitor electrolytes Admission and Anticipated Discharge Date Admission Date: January 15, 2024 Subjective Patient reports a lot of abdominal pain and cramping. She reports that she has been having diarrheal stools for weeks. Physical Exam Physical Exam: Constitutional: Alert, nontoxic, no acute distress HEENT: Mucous membranes moist. Lungs: Clear to auscultation, decreased, no wheezes rales or rhonchi CV: S1-S2, regular Abdomen: Soft, no distention, no tympany, mild right sided tenderness, no guarding Extremities: No significant edema Neuro: No focal deficits Psych: Cooperative, normal mood Results & Data Results & Data Vital Signs (Past 12 Hours) Vital Signs Temp Pulse Pulse Resp BP BP BP 01/16/24 08:11 36.4 C L 70 16 154/96 H 01/16/24 03:18 01/16/24 03:18 36.9 C 86 16 157/95 H 01/16/24 02:28 36.9 C 86 16 157/95 H 01/16/24 01:18 37.0 C 83 20 126/82 Pulse Ox O2 Del Method 01/16/24 08:11 97 Room Air 01/16/24 03:18 Room Air 01/16/24 03:18 99 Room Air 01/16/24 02:28 99 Room Air 01/16/24 01:18 96 Room Air Diagnostic Findings Reviewed imaging, laboratory and diagnostic studies. Pertinent findings as below. Personally reviewed KUB, no air-fluid levels, extensive stool throughout the colon no evidence of obstruction CBC BMP within normal range, stable
--- NOTE | 2024-01-16 13:12 | Anesthesiology Consultation ---
Date of Service January 16, 2024 Assessment & Plan (1) Encounter for pre-operative examination: Chart Review Chart Review: Acceptable Risk for Surgery and Patient NOT seen in Pre Admission Testing Consults Requested none History Surgery Operation Date: 01/16/24 17:50 Proposed Procedures p Flexible Sigmoidoscopy Solomon Carbajal MD Operation Date: 01/17/24 16:55 Proposed Procedures p Flexible Sigmoidoscopy Solomon Carbajal MD Height/Weight Height: 5 ft 2 in Weight: 64 kg Allergies Allergy/AdvReac Type Severity Reaction Status Date / Time No Known Allergies Allergy Verified 01/15/24 19:10 Medications Home Medications Medication Instructions Recorded Confirmed Last Taken levothyroxine 50 mcg capsule 50 mcg PO DAILY 11/25/23 01/15/24 01/15/24 lisinopril 2.5 mg tablet 2.5 mg PO DAILY 11/25/23 01/15/24 01/15/24 norgestimate 0.25 mg-ethinyl 1 tab PO DAILY 11/25/23 01/15/24 01/15/24 estradiol 35 mcg tablet (Sprintec (28)) Active Medications Generic Name Dose Route Start Last Admin Trade Name Freq PRN Reason Stop Dose Admin Dextrose/Sodium Chloride 1,000 mls @ 80 mls/hr 01/16/24 00:45 01/16/24 13:15 D5w And Nss IV 02/15/24 00:44 0 mls/hr .[id number] ZACH Infusion Sodium Chloride 500 mls @ 15 mls/hr 01/16/24 07:30 01/16/24 13:36 Nss IV 01/17/24 07:29 15 mls/hr .Q24H ZACH Administration Ketorolac Tromethamine 15 mg 01/16/24 00:39 01/16/24 12:09 Ketorolac Tromethamine 15 Mg/Ml Vial IV 01/21/24 00:38 15 mg Q6H PRN Administration Pain Levothyroxine Sodium 50 mcg 01/16/24 06:30 01/16/24 06:31 Levothyroxine Sodium 50 Mcg Tablet PO 02/15/24 06:29 50 mcg DAILYBB ZACH Administration Lisinopril 2.5 mg 01/16/24 09:00 01/16/24 08:28 Lisinopril 2.5 Mg Tab PO 02/15/24 08:59 2.5 mg DAILY ZACH Administration Tramadol HCl 25 - 50 mg 01/16/24 00:39 01/16/24 06:34 Tramadol Hcl 50 Mg Tablet PO 02/15/24 00:38 50 mg Q4H PRN Administration Pain Past Medical History Medical History Left ventricular non-compaction cardiomyopathy Encounter for pre-operative examination Heart abnormality Hypothyroid Exercise / Class Metabolic Activity II 4-5 Yardwork/Stairs/Walk up hill Past Surgical History Surgical History Status post breast reduction Past Anesthesia History No Hx of Anesthesia Complications and No Family Hx of Anesthesia Complications History of PONV No Hx of PONV and No Hx of Motion Sickness Social History Smoking Status: Never smoker Do You Dip or Chew Tobacco: No Hx Alcohol Use: Yes alcohol intake frequency: holidays/special occasions only Hx Substance Use: Yes substance use type: marijuana Last Used Substance: Just Prior to Arrival Last Used Substance Other:: Medical marijuana gummy used before admission Physical Exam Vital Signs Last Vital Signs Temp 37.1 C 01/16/24 13:25 Pulse 79 01/16/24 13:25 Resp 16 01/16/24 13:25 BP 154/91 H 01/16/24 13:25 Pulse Ox 99 01/16/24 13:25 O2 Del Method Room Air 01/16/24 13:25 Testing Laboratory Results 01/16/24 05:23 01/16/24 05:23 Urine Color Yellow 01/16/24 02:00 Urine Appearance Clear (Clear) 01/16/24 02:00 Urine pH 8.0 (4.5-7.5) H 01/16/24 02:00 Ur Specific [place] > 1.045 (1.000-1.030) H 01/16/24 02:00 Urine Protein Negative (Negative) 01/16/24 02:00 Urine Glucose (UA) Negative (Negative) 01/16/24 02:00 Urine Ketones Negative (Negative) 01/16/24 02:00 Urine Nitrite Negative (Negative) 01/16/24 02:00 Ur Leukocyte Esterase Negative (Negative) 01/16/24 02:00 01/15/24 21:25 POC Ur Test NEG Electrocardiogram ns. sinus arrhythmia. HR 64. PVC and PAC on Holter Echocardiogram 03/2023: echo EF 50-54% moderate trebeculation of LV apex.
[2024-01-16] MEDS: SODIUM CHLORIDE 0.9% 500 ML IV SCH (13:36)
--- NOTE | 2024-01-16 14:18 | GI REPORT ---
[facility] Patient: MARLYN LUNA : 1985 Sex at : Female Age: 38 Years Procedure: Colonoscopy Date: 01/16/2024 Attending Physician: Quinn Carbajal MD Referring MD: Referred Self Additional Staff: Davidson Weinstein Indications: - Abnormal CAT scan, possible partial colonic obstruction at the level of splenic flexure. - Abnormal CT scan, suspected partial colonic obstruction at the level of splenic flexure. Medications: - Monitored Anesthesia Care Complications: - No immediate complications. Estimated Blood Loss: - Estimated blood loss: None. Procedure: - The pediatric colonoscope was introduced through the anus and advanced to the hepatic flexure. - The colonoscopy was performed without difficulty. - The patient was prepped with tap water enema. - The quality of the bowel preparation was evaluated using the BBPS ([place] Bowel Preparation Scale) with scores of: Right Colon = 0 (unprepared, mucosa not seen due to solid stool that cannot be cleared or unseen proximal colon segment in a colonoscopy aborted due to inadequate bowel prep), Left Colon = 2 (minor amount of residual staining, small fragments of stool and/or opaque liquid, but mucosa seen well) and Transverse Colon = 1 (portion of mucosa seen, but other areas not well seen due to staining, residual stool and/or opaque liquid). The total BBPS score equals 3. - The colonoscopy was performed without difficulty. - The patient tolerated the procedure well. Findings: - The perianal and digital rectal examinations were normal. - A foreign body was found at the splenic flexure. The appearance of her body was consistent with fleet enema handle The foreign body was retrieved with a rat-tooth forceps. There was no evidence of bowel obstruction. Entire visualized mucosa was normal. Impression: - Foreign body at the splenic flexure. - The appearance of her body was consistent with fleet enema handle - The foreign body was retrieved with a rat-tooth forceps. - There was no evidence of bowel obstruction. - Entire visualized mucosa was normal. - No specimens collected. Recommendation: - Discharge patient to home. - Return to GI office as previously scheduled. Procedure Code(s): - 77150-43, Colonoscopy, flexible; diagnostic, including collection of specimen(s) by brushing or washing, when performed (separate procedure) Diagnosis Code(s): - T18.4XXA, Foreign body in colon, initial encounter CPT(R) - 2023 copyright [employer]. All Rights Reserved. The CPT codes, CCI edits and ICD codes generated are intended as suggestions and were generated based on input data. These codes are preliminary and upon visual display associate review may be revised to meet current compliance and payer requirements. The provider is responsible for the final determination of appropriate codes, and modifiers. Quinn Carbajal M.D., MD This document has been electronically signed. Note Initiated:01/16/2024 Note Completed:01/16/2024 2:17 PM [id number]
[2024-01-16 14:29] VITALS: RESP 16
--- NOTE | 2024-01-16 14:38 | Anesthesiology Progress Note ---
Date of Service January 16, 2024 Anesthesia Post Procedure Vital Signs Vital Signs: Temp Pulse Pulse Pulse Resp BP BP 01/16/24 14:25 63 16 95/64 L 01/16/24 14:10 56 L 15 97/56 L 01/16/24 13:25 37.1 C 79 16 154/91 H 01/16/24 08:11 36.4 C L 70 16 154/96 H 01/16/24 03:18 01/16/24 03:18 36.9 C 86 16 01/16/24 02:28 36.9 C 86 16 01/16/24 01:18 37.0 C 83 20 126/82 01/16/24 00:00 37.0 C 88 20 01/15/24 23:28 98 H 01/15/24 22:00 86 15 01/15/24 19:12 74 19 01/15/24 19:10 85 01/15/24 18:49 36.8 C 93 H 18 165/119 H BP Pulse Ox O2 Del Method 01/16/24 14:25 97 Room Air 01/16/24 14:10 99 Room Air 01/16/24 13:25 99 Room Air 01/16/24 08:11 97 Room Air 01/16/24 03:18 Room Air 01/16/24 03:18 157/95 H 99 Room Air 01/16/24 02:28 157/95 H 99 Room Air 01/16/24 01:18 96 Room Air 01/16/24 00:00 160/80 H 97 Room Air 01/15/24 23:28 01/15/24 22:00 135/83 97 Room Air 01/15/24 19:12 172/109 H 99 Room Air 01/15/24 19:10 01/15/24 18:49 98 Room Air Pain Intensity Abdomen: Pain Intensity: 5 Transfer of Care Handoff Completed per policy Notes Mental Status: alert / awake / arousable and participated in evaluation Patient Amnestic to Procedure: Yes Nausea / Vomiting: adequately controlled Pain: adequately controlled Airway Patency, RR, SpO2: stable & adequate BP & HR: stable & adequate Hydration State: stable & adequate Anesthetic Complications: no major complications apparent and Pt Satisfied with anesthetic care
[2024-01-16 14:57] VITALS: PULSE 60; TEMP 97.9; O2SAT 100
[2024-01-16] MEDS: PROPOFOL IV EMULSION 10 MG/ML 20 ML VIAL IV ONE (16:34)
[2024-01-16] MEDS: fentaNYL citrate PF 100 MCG/2 ML VIAL ONE (16:35)
[2024-01-16] MEDS: MIDAZOLAM HCL 1 MG/ML 2ML VIAL ONE (16:35)
--- NOTE | 2024-01-16 17:59 | Discharge Summary ---
Discharge Summary Date of Service January 16, 2024 Principal Dx & Hospital Course #1 = Principal Diagnosis (1) Obstipation: (2) Irritable bowel syndrome with constipation and diarrhea: (3) Small intestinal bacterial overgrowth: (4) Hypothyroid: (5) Hypertension: Plan Patient presented to the emergency room with abdominal pain and outpatient CT scan that was concerning for possible volvulus. Workup in the emergency room included a repeat CT scan with possible large bowel obstruction. Patient was admitted to the hospital. She was made NPO. She is given pain medications and IV fluids. Patient was seen by the surgical team. Follow-up KUB showed a nonobstructive bowel gas pattern. All imaging performed in the last 24 hours showed that the patient was full of stool. Her abdomen there was not a surgical abdomen and did not require any surgical intervention. Patient was seen by GI. They recommended tapwater enemas for her constipation and obstipation. GI then performed a colonoscopy to the hepatic flexure. There was no ulcerations. No evidence of volvulus. There was no other acute findings or need for biopsy. She did have evidence of stool in the left side of her colon. Accidentally the patient while self administering the tapwater enemas one of the handles of the enema was injected intoher rectum and this was retrieved on colonoscopy. There was no evidence of any mucosal damage. Patient's laboratory studies were stable. Her abdominal pain completely resolved. Recommended that the patient be discharged home on a regular bowel regimen and continuing to follow outpatient with her PCP and GI team. Patient's family was subsequently at the patient's bedside after the procedure. They were expressing their disappointment that a definitive diagnosis was not obtained and made for her chronic bowel issues and chronic intermittent diarrhea and abdominal pain. I did extensive review of her [facility] EMR as well as all of her imaging. Multiple conversations with the GI team here at [facility]. Patient advocate was also involved and had a conversation with the family. Spent a great deal of time explaining to them the need for hospital evaluation. Explained to them that we ruled out the emergent issue of the volvulus. I explained to them that more than likely this was how the bowels were situated in her abdomen at the time of the imaging and did not have a true volvulus. Did stressed to them that all the imaging mention that she was full of stool. The enemas did alleviate a good bit of that. She still has some in the left side of her colon. We discussed a good bowel regimen. We discussed how her bowel could be irritated from the recent antibiotic she was on for her small bowel bacterial overgrowth. We discussed how she may have a chronic irritable bowel syndrome that will need to be managed on a chronic daily basis. I did give the patient options of staying in the hospital overnight to continue with some evacuation of her bowels the trial of dicyclomine and making sure that she could make it through the night without recurrence of her severe abdominal pain. Also discussed about starting a good bowel regimen at home, trial dicyclomine. Patient reports that she has been given a prescription of this but had not tried this medication yet at home. I reassured her that [facility] GI team would follow-up with her. She expressed desire to follow-up with them. After weighing all of her options patient made an informed decision to be discharged this evening. She will be discharged with recommendations for MiraLAX senna on a daily basis dicyclomine as needed for severe abdominal cramping. We also discussed diet. We discussed potentially using warm compresses on the abdomen when she gets the severe abdominal pain and cramping. She was given instruc tions to seek medical attention if her abdominal pain continues to be severe and not improved with these interventions. She will follow-up with her PCP and outpatient GI. Notes For Next Care Provider Continue to work with patient to fine solutions for her chronic diarrhea/constipation/abdominal cramping Medication Changes From Visit MiraLAX added Dicyclomine as needed Senna added to regimen Admission HPI Per Admitting Provider History obtained from patient and records. Medical history significant for hypertension, hypothyroidism, gestational DM. Patient has been dealing with constant abdominal pain with diarrhea symptoms since May 2023. Hemorrhoids on outpatient colonoscopy. Outpatient stool workup negative. No improvement with presumptive treatment for bacterial overgrowth as per patient. Outpatient CT abdomen pelvis done at [facility] facility yesterday. Patient noted worsening achy abdominal discomfort without vomiting symptoms yesterday. CT abdomen pelvis showed sigmoid volvulus. Patient directed to ER for evaluation. 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 Lungs: Clear to auscultation, decreased, no wheezes rales or rhonchi CV: S1-S2, regular Abdomen: Soft, no distention, no tympany, mild right sided tenderness, no guarding Extremities: No significant edema Neuro: No focal deficits Psych: Cooperative, anxious Updated Medication List Medication Instructions Recorded Confirmed Type levothyroxine 50 mcg capsule 50 mcg PO DAILY 11/25/23 01/15/24 History lisinopril 2.5 mg tablet 2.5 mg PO DAILY 11/25/23 01/15/24 History norgestimate 0.25 mg-ethinyl 1 tab PO DAILY 11/25/23 01/15/24 History estradiol 35 mcg tablet (Sprintec (28)) dicyclomine 20 mg tablet 20 mg PO Q6H PRN abdominal 01/16/24 Rx pain/cramps #30 tabs polyethylene glycol 3350 17 17 g PO BID #850 grams 01/16/24 Rx gram/dose oral powder (Miralax) sennosides 8.6 mg capsule (senna) 8.6 mg PO BID #60 caps 01/16/24 Rx Hospital Stay Data Consultations 01/15/24 23:12 ED Decision to Admit Stat 01/16/24 01:29 Consult Gastroenterology Routine Procedures Performed Operation Date: 01/17/24 16:55 <No data on this case meets the specified criteria> Diagnostic Imagining Performed 01/15/24 20:43 CT Abd and Pelvis [CT abd pelvis IV con only] Stat Reviewed imaging, laboratory and diagnostic studies. Pertinent findings as below. Colonoscopy/sigmoidoscopy report no acute abnormalities, I refer you to the full report for details WBCs 8.4 Hemoglobin 12.2 Platelets 239 Electrolytes all within normal range Creatinine 0.71 Lactate 0.6 LFTs within normal range Urinalysis negative for signs of infection Pending Results Patient Have Any Pending Studies at Discharge: No Discharge Instructions Given to Patient (Per Discharging Provider) Additional dietary recommendations: Recommend staying well-hydrated Limit gas producing vegetables and beans Avoid spicy foods, fried foods, alcohol, carbonated sugary drinks Total Time Total Time Spent Total Time Spent (In Minutes): 80
[2024-01-16 18:10] VITALS: BP 157/95
== END 2024-01-16 18:25 | disposition home or self-care (01) | DRG 392 ==
LOC: ED 18:41 → 3W 23:47